=== PATIENT | female | born 1950 | race African-American/Black ===

== ENCOUNTER 2018-12-04 22:30 | Inpatient (IN) | payer BC ==
[~2018-12-04] VITALS: Ht 167.6 cm; Wt 95.5 kg
[2018-12-04] MEDS ORDERED: FUROSEMIDE40 MG ORAL (22:48)
[2018-12-04] MEDS ORDERED: SYMBICORT 16010.2 G1 IH (22:48)
[2018-12-04] MEDS ORDERED: ASPIRIN325 MG ORAL (22:48)
[2018-12-04] MEDS ORDERED: LISINOPRIL20 MG ORAL (22:48)
[2018-12-04] MEDS ORDERED: QVAR7.3 GM INH (22:48)
[2018-12-04] MEDS ORDERED: CRESTOR40 MG ORAL (22:48)
[2018-12-04] MEDS ORDERED: SPIRIVA18 MCG INH (22:48)
[2018-12-04] MEDS ORDERED: AMLODIPINE BESY10 MG ORAL (22:48)
[2018-12-04] MEDS ORDERED: TENORMIN50 MG ORAL (22:48)
[2018-12-04 23:00] VITALS: BP 127/60
--- NOTE | 2018-12-04 23:00 | NUR ---
ED Nurse Note: Patient presents to ED c/o chest tightness and shortness of breath since this AM. Patient AOx4, VSS, ambulatory with steady gait, no s/s of acute distress noted at this time. Patient has wheezing in all lobes upon auscultation. Patient reports 8/10 pain. Patient states it feels like something sitting on my chest. Patient seen by ERMD at bedside.
[2018-12-04] MEDS ORDERED: Solu-MEDROL 125mg Inj IVP ONE (23:15)
[2018-12-04] MEDS ORDERED: Albuterol ud Inhalation HHN ONE (23:15)
[2018-12-04] MEDS ORDERED: Ipratropium 0.02% Inh Soln 2.5ml UD HHN ONE (23:15)
[2018-12-04 23:32] LABS: BASOPHILS % (AUTO) 1.6 % (0.0-2.0); EOSINOPHILS % (AUTO) 2.7 % (0.0-3.0); HEMATOCRIT 38.6 % (37.0-47.0); HEMOGLOBIN 12.3 G/DL (12.0-16.0); LYMPHOCYTES % (AUTO) 18.3 % (20.0-45.0); MEAN CORPUSCULAR VOLUME 93 FL (80-99); MONOCYTES % (AUTO) 7.6 % (1.0-10.0); NEUTROPHILS % (AUTO) 69.8 % (45.0-75.0); PLATELET COUNT 335 K/UL (150-450); RED BLOOD COUNT 4.16 M/UL (4.20-5.40); RED CELL DISTRIBUTION WIDTH 12.7 % (11.6-14.8); WHITE BLOOD COUNT 9.6 K/UL (4.8-10.8)
[2018-12-04 23:53] LABS: ANION GAP 11 mmol/L (5-15); BLOOD UREA NITROGEN 23 mg/dL (7-18); CALCIUM 9.5 MG/DL (8.5-10.1); CARBON DIOXIDE 27 MMOL/L (21-32); CHLORIDE 106 MMOL/L (98-107); CREATININE 1.1 MG/DL (0.55-1.30); POTASSIUM 3.8 MMOL/L (3.5-5.1); SODIUM 144 MMOL/L (136-145)
--- NOTE | 2018-12-04 23:56 | Emergency Room Report ---
History of Present Illness General Chief Complaint: Chest Pain Source: Patient Present Illness HPI Patient presents with complaints of chest tightness also complained of shortness of breath After rapid evaluation patient had wheezing At this time reports that she also has history of COPD and is on multiple medications for that Chest tightness started this morning Ongoing throughout the day Denies any vomiting Denies any headache Pain was a tightness description Patient is also on beta jimenez for blood pressure Denies any recent travel denies any pleurisy Allergies: Coded Allergies: No Known Allergies (Verified Allergy, Mild, 12/11/07) Patient History Past Medical History: see triage record Pertinent Family History: none Last Menstrual Period: 2 decades ago Now: No : 2 Para: 2 Reviewed Nursing Documentation: PMH: Agreed; PSxH: Agreed Nursing Documentation-PMH Hx Cardiac Problems: Yes Hx Hypertension: Yes - high cholesterol Hx Cerebrovascular Accident: Yes Review of Systems All Other Systems: negative except mentioned in HPI Physical Exam Vital Signs Date Time Temp Pulse Resp B/P (MAP) Pulse Ox O2 Delivery O2 Flow Rate FiO2 12/04/18 22:43 98.4 78 21 127/60 94 Room Air 12/04/18 23:28 21 Sp02 EP Interpretation: reviewed, normal General Appearance: no apparent distress Head: normocephalic, atraumatic Eyes: bilateral eye PERRL, bilateral eye EOMI ENT: hearing grossly normal, normal pharynx, TMs + canals normal, uvula midline Neck: full range of motion, supple, no meningismus, no bony tend Respiratory: no retraction, no accessory muscle use, wheezing - Bilaterally Cardiovascular #1: normal peripheral pulses, regular rate, rhythm, no edema, no gallop, no JVD, no murmur Gastrointestinal: normal bowel sounds, non tender, soft, no mass, no organomegaly, non-distended, no guarding, no hernia, no pulsatile mass, no rebound Genitourinary: no CVA tenderness Musculoskeletal: normal inspection Neurologic: oriented x3, responsive, [employer] III-XII nml as tested, motor strength/ tone normal, sensory intact Psychiatric: mood/affect normal Skin: normal color, no rash, warm/dry, palpation normal Lymphatic: normal inspection, no adenopathy Medical Decision Making Diagnostic Impression: Primary Impression: ACS (acute coronary syndrome) Additional Impression: COPD exacerbation ER Course Patient is a fairly complex patient with multiple differential to consideration including but not limited to cardiac cardiopulmonary and vascular emergencies Patient receiving blood work here along with breathing treatments Thus far EKG does not show any acute pathology Patient feels better and is stable for further inpatient care Labs Test 12/04/18 23:15 White Blood Count 9.6 K/UL (4.8-10.8) Red Blood Count 4.16 M/UL (4.20-5.40) Hemoglobin 12.3 G/DL (12.0-16.0) Hematocrit 38.6 % (37.0-47.0) Mean Corpuscular Volume 93 FL (80-99) Mean Corpuscular Hemoglobin 29.6 PG (27.0-31.0) Mean Corpuscular Hemoglobin Concent 32.0 G/DL (32.0-36.0) Red Cell Distribution Width 12.7 % (11.6-14.8) Platelet Count 335 K/UL (150-450) Mean Platelet Volume 5.7 FL (6.5-10.1) Neutrophils (%) (Auto) 69.8 % (45.0-75.0) Lymphocytes (%) (Auto) 18.3 % (20.0-45.0) Monocytes (%) (Auto) 7.6 % (1.0-10.0) Eosinophils (%) (Auto) 2.7 % (0.0-3.0) Basophils (%) (Auto) 1.6 % (0.0-2.0) Sodium Level 144 MMOL/L (136-145) Potassium Level 3.8 MMOL/L (3.5-5.1) Chloride Level 106 MMOL/L (98-107) Carbon Dioxide Level 27 MMOL/L (21-32) Anion Gap 11 mmol/L (5-15) Blood Urea Nitrogen 23 mg/dL (7-18) Creatinine 1.1 MG/DL (0.55-1.30) Estimat Glomerular Filtration Rate > 60 mL/min (>60) Glucose Level 120 MG/DL (74-106) Calcium Level 9.5 MG/DL (8.5-10.1) Total Bilirubin 0.3 MG/DL (0.2-1.0) Aspartate Amino Transf (AST/SGOT) 19 U/L (15-37) Alanine Aminotransferase (ALT/SGPT) 28 U/L (12-78) Alkaline Phosphatase 69 U/L (46-116) Total Creatine Kinase 262 U/L (26-308) Creatine Kinase MB 1.8 NG/ML (0.0-3.6) Creatine Kinase MB Relative Index 0.6 Troponin I 0.000 ng/mL (0.000-0.056) Pro-B-Type Natriuretic Peptide 80 pg/mL (0-125) Total Protein 7.6 G/DL (6.4-8.2) Albumin 3.9 G/DL (3.4-5.0) Globulin 3.7 g/dL Albumin/Globulin Ratio 1.1 (1.0-2.7) Lipase 156 U/L (73-393) EKG Diagnostic Results Rate: normal Rhythm: NSR ST Segments: other - Nonspecific ST/T-wave changes Rhythm Strip Diag. Results EP Interpretation: yes Rate: 60 Rhythm: NSR, no PVC's, no ectopy Chest X-Ray Diagnostic Results Chest X-Ray Diagnostic Results : Chest X-Ray Ordered: Yes # of Views/Limited/Complete: 1 View Indication: Shortness of Breath EP Interpretation: Yes Interpretation: no consolidation, no effusion, no pneumothorax Impression: No acute disease - Mildly elevated left hemidiaphragm bilateral mild atelectasis Electronically Signed by: Robin Cheung DO Last Vital Signs Date Time Temp Pulse Resp B/P (MAP) Pulse Ox O2 Delivery O2 Flow Rate FiO2 12/04/18 23:39 64 16 100 Room Air 21 12/04/18 22:43 98.4 127/60 Status: improved Disposition: ADMITTED INPATIENT Condition: Serious Referrals: HOUSTON FAM M.D. (REFERMD) (PCP) Robin Cheung DO Dec 04, 2018 23:55
[2018-12-05] VITALS (7 sets, daily range): BP systolic 112–148; BP diastolic 56–78
[2018-12-05 00:08] LABS: ALANINE AMINOTRANSFERASE 28 U/L (12-78); ALBUMIN 3.9 G/DL (3.4-5.0); ALBUMIN/GLOBULIN RATIO 1.1 (1.0-2.7); ALKALINE PHOSPHATASE 69 U/L (46-116); ASPARTATE AMINO TRANSFERASE 19 U/L (15-37); BILIRUBIN,TOTAL 0.3 MG/DL (0.2-1.0); CKMB 1.8 NG/ML (0.0-3.6); CREATINE KINASE 262 U/L (26-308)
[2018-12-05] MEDS ORDERED: Aspirin Baby 81mg NG ONE (01:15)
--- NOTE | 2018-12-05 01:58 | NUR ---
ED Nurse Note: Patient transferred to telemetry unit on [facility], connected to radiation monitor, by polysomnography tech and staff development coordinator. Patient AOx4, VSS, ambulatory with steady gait, no s/s of acute distress noted at this time. Patient sent with all personal belongings. patient report given to Arpita RN at bedside. Patient tolerated transfer well. Addendum: 12/05/18 at 0215 by POLY ED Nurse Note: Patient transferred to telemetry unit on [facility], connected to radiation monitor, by polysomnography tech and staff development coordinator. Patient AOx4, VSS, ambulatory with steady gait, no s/s of acute distress noted at this time. Patient sent with all personal belongings. patient report given to Rita HERNÁNDEZ at bedside. Patient tolerated transfer well.
--- NOTE | 2018-12-05 02:10 | NUR ---
NURSE NOTES: Received report from CHRISTINE Ramirez RN. Patient was transferred to Telemetry unit from ER via [facility] without incident. No signs of acute distress noted; denies pain at this time. AOX4; able to make needs known. Ambulates independently. Checked IV site; patent and flushed. No erythema, bleeding, or infiltration noted. Patient put on Tele box; sinus rhythm on the monitor (60s). Belongings list checked with patient and transferring RN. Bed at lowest position, brakes on, siderails up x2. Call light within reach. Will continue to monitor.
[2018-12-05] MEDS ORDERED: SPIRIVA18 MCG INH (02:28)
--- NOTE | 2018-12-05 02:33 | NUR ---
NURSE NOTES: Called Dr. Vera for admission orders. Awaiting callback.
--- NOTE | 2018-12-05 03:10 | NUR ---
NURSE NOTES: Received admission orders from Dr. Vera. Noted and carried out.
[2018-12-05] MEDS ORDERED: Albuterol/Ipratropium 3ml neb HHN PRN ×2 (03:15→10:30)
[2018-12-05] MEDS ORDERED: Morphine Sulfate 2mg/ml Inj(IV/IM USE ONLY) IVP PRN (03:15)
[2018-12-05] MEDS: Solu-MEDROL 125mg Inj IVP SCH ×3 (05:08→21:23)
[2018-12-05 05:53] LABS: HEMOGLOBIN 12.6 G/DL (12.0-16.0); MEAN CORPUSCULAR VOLUME 93 FL (80-99); PLATELET COUNT 343 K/UL (150-450); WHITE BLOOD COUNT 10.6 K/UL (4.8-10.8)
[2018-12-05 06:35] LABS: ALANINE AMINOTRANSFERASE 31 U/L (12-78); ALBUMIN 3.8 G/DL (3.4-5.0); ALKALINE PHOSPHATASE 59 U/L (46-116); ANION GAP 10 mmol/L (5-15); ASPARTATE AMINO TRANSFERASE 20 U/L (15-37); BILIRUBIN,TOTAL 0.3 MG/DL (0.2-1.0); BLOOD UREA NITROGEN 22 mg/dL (7-18); CALCIUM 9.4 MG/DL (8.5-10.1); CARBON DIOXIDE 25 MMOL/L (21-32); CHLORIDE 107 MMOL/L (98-107); CHOLESTEROL 171 MG/DL (< 200); CREATININE 0.9 MG/DL (0.55-1.30); HDL CHOLESTEROL 50 MG/DL (40-60); POTASSIUM 4.3 MMOL/L (3.5-5.1); SODIUM 142 MMOL/L (136-145); TRIGLYCERIDES 71 MG/DL (30-150)
--- NOTE | 2018-12-05 06:35 | NUR ---
CASE MANAGEMENT:REVIEW 68 YR OLD FEMALE FROM HOME TO ER CC: CHEST PAIN AND SOB SI: ACS. COPD EXACERBATION 98.5 78 21 127/60 94% ON RA BUN+23 GLUCOSE+120 TROPONIN(-) IS: ASA PO DUONEB HHN IV SOLUMEDROL CXR BLOOD CX : TO TELEMETRY INTERQUAL
--- NOTE | 2018-12-05 07:00 | NUR ---
HAND-OFF: Report given to EDGAR Fuentes and EDGAR Pimentel. Patient is asleep lying semi-franco's; resting comfortably. In stable condition.
--- NOTE | 2018-12-05 07:05 | NUR ---
NURSE NOTES: received patient report from fernando persaud. patient i son bed asleep. not in acute distress. comfortable,bed i slow and locked for safety.Sr on the monitor. no arrythmias reported during the night.on RA. will continue to monitor.
[2018-12-05] MEDS: Lisinopril 20mg tab ORAL SCH (08:19)
[2018-12-05] MEDS: Aspirin Baby 81mg ORAL SCH (08:19)
[2018-12-05] MEDS: Heparin 5000 units/ml inj SUBQ SCH ×2 (08:20→21:24)
[2018-12-05] MEDS ORDERED: QVAR 80mcg Inh - 8.7gm INH SCH (10:00)
--- NOTE | 2018-12-05 10:28 | NUR ---
*-* INSURANCE *-* CLINICALS, REVIEW AND INTERQUAL HAVE BEEN FAXED TO: [facility]:BERTH[facility] P:[phone] F:[phone]
--- NOTE | 2018-12-05 10:35 | Consultation ---
Consult Note Assessment/Plan DICT # [id number] Blake Frederick MD Dec 05, 2018 10:35
--- NOTE | 2018-12-05 11:11 | History & Physical ---
History and Physical History & Physicial seen and examined. Full Dictation completed. On 11:11 Jaycee Vera MD Dec 05, 2018 11:11
--- NOTE | 2018-12-05 11:12 | General Progress Note ---
Assessment/Plan Assessment/Plan Full Dictation in progress Plan: 1- Asthma /copd exacerbation 2- Bronchitis 3- Chest pain Pulmonary and Cardiology are consulted Subjective Allergies: Coded Allergies: No Known Allergies (Verified Allergy, Mild, 12/11/07) Objective Last 24 Hour Vital Signs Date Time Temp Pulse Resp B/P (MAP) Pulse Ox O2 Delivery O2 Flow Rate FiO2 12/05/18 09:08 81 16 Room Air 21 12/05/18 09:06 89 18 98 Room Air 21 12/05/18 09:06 89 16 98 Room Air 21 12/05/18 09:00 Room Air 12/05/18 08:19 139/70 12/05/18 08:19 65 139/70 12/05/18 08:16 98.1 78 20 139/70 (93) 94 12/05/18 08:00 77 12/05/18 04:00 65 12/05/18 04:00 98.1 68 18 112/78 (89) 95 12/05/18 03:25 Room Air 12/05/18 02:20 98.0 65 18 140/72 (94) 96 12/05/18 02:14 98.4 60 13 148/56 98 Room Air 21 12/05/18 02:10 68 12/05/18 01:58 98.4 60 13 148/56 98 Room Air 12/04/18 23:39 64 16 100 Room Air 21 12/04/18 23:28 70 20 Room Air 21 12/04/18 23:28 70 20 96 Room Air 21 12/04/18 23:00 98.4 78 21 127/60 94 Room Air 12/04/18 23:00 78 21 Room Air 12/04/18 22:43 98.4 78 21 127/60 94 Room Air Intake and Output 12/04/18 12/05/18 18:59 06:59 Intake Total 0 ml Balance 0 ml Intake Oral 0 ml Laboratory Tests 12/04/18 23:15: White Blood Count 9.6, Red Blood Count 4.16L, Hemoglobin 12.3, Hematocrit 38.6, Mean Corpuscular Volume 93, Mean Corpuscular Hemoglobin 29.6, Mean Corpuscular Hemoglobin Concent 32.0, Red Cell Distribution Width 12.7, Platelet Count 335, Mean Platelet Volume 5.7L, Neutrophils (%) (Auto) 69.8, Lymphocytes (%) (Auto) 18.3L, Monocytes (%) (Auto) 7.6, Eosinophils (%) (Auto) 2.7, Basophils (%) (Auto ) 1.6, Sodium Level 144, Potassium Level 3.8, Chloride Level 106, Carbon Dioxide Level 27, Anion Gap 11, Blood Urea Nitrogen 23H, Creatinine 1.1, Estimat Glomerular Filtration Rate > 60, Glucose Level 120H, Calcium Level 9.5, Total Bilirubin 0.3, Aspartate Amino Transf (AST/SGOT) 19, Alanine Aminotransferase (ALT/SGPT) 28, Alkaline Phosphatase 69, Total Creatine Kinase 262, Creatine Kinase MB 1.8, Creatine Kinase MB Relative Index 0.6, Troponin I 0.000, Pro-B-Type Natriuretic Peptide 80, Total Protein 7.6, Albumin 3.9, Globulin 3.7, Albumin/Globulin Ratio 1.1, Lipase 156 12/05/18 05:00: White Blood Count 10.6, Red Blood Count 4.20, Hemoglobin 12.6, Hematocrit 39.0, Mean Corpuscular Volume 93, Mean Corpuscular Hemoglobin 30.0, Mean Corpuscular Hemoglobin Concent 32.3, Red Cell Distribution Width 13.0, Platelet Count 343, Mean Platelet Volume 6.5, Neutrophils (%) (Auto) , Lymphocytes (%) (Auto) , Monocytes (%) (Auto) , Eosinophils (%) (Auto) , Basophils (%) (Auto) , Sodium Level 142, Potassium Level 4.3, Chloride Level 107, Carbon Dioxide Level 25, Anion Gap 10, Blood Urea Nitrogen 22H, Creatinine 0.9, Estimat Glomerular Filtration Rate > 60, Glucose Level 128H, Calcium Level 9.4, Total Bilirubin 0.3 , Aspartate Amino Transf (AST/SGOT) 20, Alanine Aminotransferase (ALT/SGPT) 31, Alkaline Phosphatase 59, Troponin I 0.000, Pro-B-Type Natriuretic Peptide 67, Total Protein 7.6, Albumin 3.8, Globulin 3.8, Albumin/Globulin Ratio 1.0, Hemoglobin A1c 5.7, Triglycerides Level 71, Cholesterol Level 171, LDL Cholesterol 100, HDL Cholesterol 50, Cholesterol/HDL Ratio 3.4, Thyroid Stimulating Hormone (TSH) 0.406 12/05/18 10:50: D-Dimer [Pending] Height (Feet): 5 Height (Inches): 6.00 Weight (Pounds): 185 Jaycee Vera MD Dec 05, 2018 11:12
--- NOTE | 2018-12-05 12:43 | Diagnostic Imaging Report ---
Indication: Shortness of breath Technique: One view of the chest Comparison: 03/13/2008 Findings: Body habitus limits evaluation. The heart size is borderline enlarged. No definite infiltrates, effusions, or congestion.. Impression: No acute process
[2018-12-05] MEDS: Albuterol/Ipratropium 3ml neb HHN SCH ×2 (13:28→20:10)
--- NOTE | 2018-12-05 14:12 | Infectious Diseases Prog Note ---
Assessment/Plan Problems: (1) Bronchitis with chronic airway obstruction Assessment & Plan: continue doxycycline and add ceftriaxone empirically , continue inhalers and steroids (2) COPD exacerbation Assessment & Plan: due to the above, continue inhalers, taper steroids, o2 therapy as needed (3) ACS (acute coronary syndrome) Assessment & Plan: cardiac work up as per cardiology Subjective Allergies: Coded Allergies: No Known Allergies (Verified Allergy, Mild, 12/11/07) Objective Vital Signs Last 24 Hour Vital Signs Date Time Temp Pulse Resp B/P (MAP) Pulse Ox O2 Delivery O2 Flow Rate FiO2 12/05/18 13:34 78 16 100 Room Air 21 12/05/18 13:24 36 12/05/18 13:24 85 20 97 Room Air 21 12/05/18 12:00 98.1 82 20 129/69 (89) 94 12/05/18 09:08 81 16 Room Air 21 12/05/18 09:06 89 18 98 Room Air 21 12/05/18 09:06 89 16 98 Room Air 21 12/05/18 09:00 Room Air 12/05/18 08:19 139/70 12/05/18 08:19 65 139/70 12/05/18 08:16 98.1 78 20 139/70 (93) 94 12/05/18 08:00 77 12/05/18 04:00 65 12/05/18 04:00 98.1 68 18 112/78 (89) 95 12/05/18 03:25 Room Air 12/05/18 02:20 98.0 65 18 140/72 (94) 96 12/05/18 02:14 98.4 60 13 148/56 98 Room Air 21 12/05/18 02:10 68 12/05/18 01:58 98.4 60 13 148/56 98 Room Air 12/04/18 23:39 64 16 100 Room Air 21 12/04/18 23:28 70 20 Room Air 21 12/04/18 23:28 70 20 96 Room Air 21 12/04/18 23:00 98.4 78 21 127/60 94 Room Air 12/04/18 23:00 78 21 Room Air 12/04/18 22:43 98.4 78 21 127/60 94 Room Air Height (Feet): 5 Height (Inches): 6.00 Weight (Pounds): 185 Laboratory Tests Test 12/04/18 23:15 12/05/18 05:00 12/05/18 10:50 12/05/18 12:45 White Blood Count 9.6 K/UL (4.8-10.8) 10.6 K/UL (4.8-10.8) Red Blood Count 4.16 M/UL (4.20-5.40) L 4.20 M/UL (4.20-5.40) Hemoglobin 12.3 G/DL (12.0-16.0) 12.6 G/DL (12.0-16.0) Hematocrit 38.6 % (37.0-47.0) 39.0 % (37.0-47.0) Mean Corpuscular Volume 93 FL (80-99) 93 FL (80-99) Mean Corpuscular Hemoglobin 29.6 PG (27.0-31.0) 30.0 PG (27.0-31.0) Mean Corpuscular Hemoglobin Concent 32.0 G/DL (32.0-36.0) 32.3 G/DL (32.0-36.0) Red Cell Distribution Width 12.7 % (11.6-14.8) 13.0 % (11.6-14.8) Platelet Count 335 K/UL (150-450) 343 K/UL (150-450) Mean Platelet Volume 5.7 FL (6.5-10.1) L 6.5 FL (6.5-10.1) Neutrophils (%) (Auto) 69.8 % (45.0-75.0) % (45.0-75.0) Lymphocytes (%) (Auto) 18.3 % (20.0-45.0) L % (20.0-45.0) Monocytes (%) (Auto) 7.6 % (1.0-10.0) % (1.0-10.0) Eosinophils (%) (Auto) 2.7 % (0.0-3.0) % (0.0-3.0) Basophils (%) (Auto) 1.6 % (0.0-2.0) % (0.0-2.0) Sodium Level 144 MMOL/L (136-145) 142 MMOL/L (136-145) Potassium Level 3.8 MMOL/L (3.5-5.1) 4.3 MMOL/L (3.5-5.1) Chloride Level 106 MMOL/L (98-107) 107 MMOL/L (98-107) Carbon Dioxide Level 27 MMOL/L (21-32) 25 MMOL/L (21-32) Anion Gap 11 mmol/L (5-15) 10 mmol/L (5-15) Blood Urea Nitrogen 23 mg/dL (7-18) H 22 mg/dL (7-18) H Creatinine 1.1 MG/DL (0.55-1.30) 0.9 MG/DL (0.55-1.30) Estimat Glomerular Filtration Rate > 60 mL/min (>60) > 60 mL/min (>60) Glucose Level 120 MG/DL (74-106) H 128 MG/DL (74-106) H Calcium Level 9.5 MG/DL (8.5-10.1) 9.4 MG/DL (8.5-10.1) Total Bilirubin 0.3 MG/DL (0.2-1.0) 0.3 MG/DL (0.2-1.0) Aspartate Amino Transf (AST/SGOT) 19 U/L (15-37) 20 U/L (15-37) Alanine Aminotransferase (ALT/SGPT) 28 U/L (12-78) 31 U/L (12-78) Alkaline Phosphatase 69 U/L (46-116) 59 U/L (46-116) Total Creatine Kinase 262 U/L (26-308) Creatine Kinase MB 1.8 NG/ML (0.0-3.6) Creatine Kinase MB Relative Index 0.6 Troponin I 0.000 ng/mL (0.000-0.056) 0.000 ng/mL (0.000-0.056) 0.017 ng/mL (0.000-0.056) Pro-B-Type Natriuretic Peptide 80 pg/mL (0-125) 67 pg/mL (0-125) Total Protein 7.6 G/DL (6.4-8.2) 7.6 G/DL (6.4-8.2) Albumin 3.9 G/DL (3.4-5.0) 3.8 G/DL (3.4-5.0) Globulin 3.7 g/dL 3.8 g/dL Albumin/Globulin Ratio 1.1 (1.0-2.7) 1.0 (1.0-2.7) Lipase 156 U/L (73-393) Hemoglobin A1c 5.7 % (4.3-6.0) Triglycerides Level 71 MG/DL (30-150) Cholesterol Level 171 MG/DL (< 200) LDL Cholesterol 100 mg/dL (<100) HDL Cholesterol 50 MG/DL (40-60) Cholesterol/HDL Ratio 3.4 (3.3-4.4) Thyroid Stimulating Hormone (TSH) 0.406 uiU/mL (0.358-3.740) D-Dimer 0.54 mg/L FEU (0.00-0.49) H Current Medications Medications (Trade) Dose Ordered Sig/Alysa Route PRN Reason Start Time Stop Time Status Last Admin Dose Admin Acetaminophen (Tylenol) 650 mg Q4H PRN ORAL Mild Pain/Temp > 100.5 12/05/18 03:15 01/04/19 03:14 Albuterol/ Ipratropium (Albuterol/ Ipratropium) 3 ml Q4H PRN HHN Shortness of Breath 12/05/18 03:15 12/10/18 03:14 Albuterol/ Ipratropium (Albuterol/ Ipratropium) 3 ml Q4H PRN HHN Shortness of Breath 12/05/18 10:30 12/10/18 10:29 Albuterol/ Ipratropium (Albuterol/ Ipratropium) 3 ml Q6HRT HHN 12/05/18 13:00 12/10/18 12:59 12/05/18 13:28 Amlodipine Besylate (Norvasc) 10 mg DAILY ORAL 12/05/18 09:00 01/04/19 08:59 12/05/18 08:19 Aspirin (ASA) 81 mg DAILY ORAL 12/05/18 09:00 01/04/19 08:59 12/05/18 08:19 Atorvastatin Calcium (Lipitor) 80 mg BEDTIME ORAL 12/05/18 21:00 01/04/19 20:59 Azithromycin (Zithromax) 500 mg DAILY ORAL 12/06/18 09:00 12/13/18 08:59 Doxycycline Monohydrate (Vibramycin) 100 mg EVERY 12 HOURS ORAL 12/05/18 21:00 12/12/18 20:59 Furosemide (Lasix) 40 mg DAILY ORAL 12/05/18 09:00 01/04/19 08:59 12/05/18 08:18 Heparin Sodium (Porcine) (Heparin 5000 units/ml) 5,000 units EVERY 12 HOURS SUBQ 12/05/18 09:00 01/04/19 08:59 12/05/18 08:20 Lisinopril (Prinivil) 40 mg DAILY ORAL 12/05/18 09:00 01/04/19 08:59 12/05/18 08:19 Methylprednisolone Sodium Succinate (Solu-MEDROL) 60 mg EVERY 8 HOURS IVP 12/05/18 06:00 01/04/19 05:59 12/05/18 13:17 Morphine Sulfate (Morphine Sulfate) 2 mg Q8HR PRN IVP Severe Pain (Pain Scale 7-10) 12/05/18 03:15 12/12/18 03:14 Pantoprazole (Protonix) 40 mg DAILY ORAL 12/05/18 09:00 01/04/19 08:59 12/05/18 08:19 Salmeterol Xinafoate/ Fluticasone (Advair 250/50 Diskus) 1 puffs BID INH 12/05/18 18:00 01/04/19 17:59 Tiotropium Lookout (Spiriva Inhaler) 1 puff DAILY INH 12/06/18 09:00 01/05/19 08:59 Kathleen Hayes M.D. Dec 05, 2018 14:12
--- NOTE | 2018-12-05 16:54 | Cardiology Report ---
APPROVED REPORT EXAM: Two-dimensional and M-mode echocardiogram with Doppler and color Doppler. INDICATION Chest Pain M-Mode DIMENSIONS IVSd1.4 (0.7-1.1cm)Left Atrium (MM)3.6 (1.6-4.0cm) LVDd1.5 (3.5-5.6cm)Aortic Root3.0 (2.0-3.7cm) PWd4.5 (0.7-1.1cm)Aortic Cusp Exc.2.0 (1.5-2.0cm) IVSs2.8 cm LVDs1.6 (2.5-4.0cm) PWs1.8 cm Normal left ventricular chamber size, systolic function and wall motion. Left ventricular ejection fraction estimated to be 55-60 %. No evidence of left ventricular hypertrophy . Anterior Echo-free space, may be due to pericardial fat or effusion. Mild left atrial enlargement. Right cardiac chamber size are within normal limits . Thickened mitral valve leaflets with normal excursion. Focal aortic valve sclerosis with adequate cusp excursion. Moderately mitral annulus and aortic root calcification. Pulmonic valve not well visualized. Normal tricuspid valve structure. IVC at size 2.1cm without physiologic collapse suggestive of increased RA pressure. A color flow and spectral Doppler study was performed and revealed: No aortic insufficiency .Peak aortic vavel gradient 17 mmhg and mean gradient of 6 mmhg Trace mitral regurgitation. Mitral diastolic velocities suggest reduced left ventricular relaxation c/w mild LV diastolic dysfunction (Grade I ). Mild tricuspid regurgitation. Tricuspid systolic velocities suggests peak right ventricular systolic pressure of 35 mmHg.
--- NOTE | 2018-12-05 17:00 | Cardiology Report ---
APPROVED REPORT EKG Measurement Heart [id number] ID [id number] Normal sinus rhythm Normal ECG
--- NOTE | 2018-12-05 17:21 | Consultation ---
History of Present Illness General Date patient seen: Dec 05, 2018 Time patient seen: 14:00 Chief Complaint: COPD EXACERBATION AND Chest Pain Referring physician: Sunshine Garza Reason for Consultation: bronchitis with COPD exacerbation Present Illness HPI This is a 68-year-old -[place] female with past medical history of COPD and asthma coronary artery disease hyperlipidemia and CVA presented to [facility] emergency room with chest tightness shortness of breath and wheezing started yesterday patient woke up with chest tightness seems like elephant sitting on her chest it was 10 out of 10 in intensity not associated with any dizziness sweats nausea or vomiting but she developed shortness of breath and wheezing after she had her chest pain so she was brought into the emergency room at [facility] for further evaluation and management. In the emergency room she had a chest x-ray which did not show any acute infiltration, her vital signs show temperature of 98.4 with a pulse of 78 and satting 94% on room air patient was admitted to the hospital to rule out acute coronary syndrome and for COPD exacerbation and infectious disease consultation was requested for antibiotics treatment and further management Allergies: Coded Allergies: No Known Allergies (Verified Allergy, Mild, 12/11/07) Medication History Scheduled Amlodipine Besylate* (Amlodipine Besylate*), 10 MG ORAL DAILY, (Reported) Aspirin* (Aspirin*), 325 MG ORAL DAILY, (Reported) Atenolol* (Tenormin*), 50 MG ORAL DAILY, (Reported) Beclomethasone Dipropionate 40MCG Oral Inh (Qvar 40*), 2 PUFFS INH TWICE A DAY, (Reported) Budesonide/Formoterol Fumarate (Symbicort 160-4.5 Mcg Inhaler), 1 PUFF IH BID, ( Reported) Furosemide* (Lasix*), 40 MG ORAL DAILY, (Reported) Lisinopril (Lisinopril*), 40 MG ORAL DAILY, (Reported) Rosuvastatin Calcium* (Crestor*), 40 MG ORAL DAILY, (Reported) Tiotropium [place]* (Spiriva*), 1 PUFF INH DAILY, (Reported) Tiotropium [place]* (Spiriva*), 1 PUFF INH DAILY, (Reported) Patient History History Provided By: Patient Healthcare decision maker Resuscitation status Full Code Advanced Directive on File Past Medical/Surgical History Past Medical/Surgical History: (1) CAD (coronary artery disease) (2) COPD (chronic obstructive pulmonary disease) (3) HTN (hypertension) Review of Systems Constitutional: Reports: weakness Eye: Reports: no symptoms ENT: Reports: no symptoms Respiratory: Reports: cough, shortness of breath, wheezing Cardiovascular: Reports: chest pain, palpitations Gastrointestinal: Reports: no symptoms Genitourinary: Reports: no symptoms Musculoskeletal: Reports: no symptoms Skin: Reports: no symptoms Psychiatric: Reports: no symptoms Neurological: Reports: no symptoms Endocrine: Reports: no symptoms Hematologic/Lymphatic: Reports: no symptoms Physical Exam General Appearance: WD/WN, no apparent distress, alert Lines, tubes and drains: peripheral HEENT: normocephalic, atraumatic, anicteric, mucous membranes moist, PERRL, pharynx normal, supple, no JVD Neck: non-tender, normal alignment, supple, normal inspection Respiratory/Chest: chest wall non-tender, no respiratory distress, no accessory muscle use, expiratory wheezing, inspiratory wheezing Cardiovascular/Chest: normal peripheral pulses, normal rate, regular rhythm, no gallop/murmur, no JVD Abdomen: normal bowel sounds, non tender, soft, no organomegaly, no mass Genitourinary/Rectal: normal genital exam Extremities: normal range of motion, non-tender, normal inspection, no calf tenderness, normal capillary refill Skin Exam: normal pigmentation, warm/dry 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, no motor/sensory deficits, alert, oriented x 3, responsive Musculoskeletal: normal muscle bulk, no effusion Last 24 Hour Vital Signs Date Time Temp Pulse Resp B/P (MAP) Pulse Ox O2 Delivery O2 Flow Rate FiO2 12/05/18 16:00 98.0 87 20 135/73 (93) 94 12/05/18 13:34 78 16 100 Room Air 21 12/05/18 13:24 36 12/05/18 13:24 85 20 97 Room Air 21 12/05/18 12:00 98.1 82 20 129/69 (89) 94 12/05/18 11:38 81 12/05/18 09:08 81 16 Room Air 21 12/05/18 09:06 89 18 98 Room Air 21 12/05/18 09:06 89 16 98 Room Air 21 12/05/18 09:00 Room Air 12/05/18 08:19 139/70 12/05/18 08:19 65 139/70 12/05/18 08:16 98.1 78 20 139/70 (93) 94 12/05/18 08:00 77 12/05/18 04:00 65 12/05/18 04:00 98.1 68 18 112/78 (89) 95 12/05/18 03:25 Room Air 12/05/18 02:20 98.0 65 18 140/72 (94) 96 12/05/18 02:14 98.4 60 13 148/56 98 Room Air 21 12/05/18 02:10 68 12/05/18 01:58 98.4 60 13 148/56 98 Room Air 12/04/18 23:39 64 16 100 Room Air 21 12/04/18 23:28 70 20 Room Air 21 12/04/18 23:28 70 20 96 Room Air 21 12/04/18 23:00 98.4 78 21 127/60 94 Room Air 12/04/18 23:00 78 21 Room Air 12/04/18 22:43 98.4 78 21 127/60 94 Room Air Intake and Output 12/04/18 12/05/18 19:00 07:00 Intake Total 0 ml Balance 0 ml Intake Oral 0 ml Laboratory Tests Test 12/04/18 23:15 12/05/18 05:00 12/05/18 10:50 12/05/18 12:45 White Blood Count 9.6 K/UL (4.8-10.8) 10.6 K/UL (4.8-10.8) Red Blood Count 4.16 M/UL (4.20-5.40) L 4.20 M/UL (4.20-5.40) Hemoglobin 12.3 G/DL (12.0-16.0) 12.6 G/DL (12.0-16.0) Hematocrit 38.6 % (37.0-47.0) 39.0 % (37.0-47.0) Mean Corpuscular Volume 93 FL (80-99) 93 FL (80-99) Mean Corpuscular Hemoglobin 29.6 PG (27.0-31.0) 30.0 PG (27.0-31.0) Mean Corpuscular Hemoglobin Concent 32.0 G/DL (32.0-36.0) 32.3 G/DL (32.0-36.0) Red Cell Distribution Width 12.7 % (11.6-14.8) 13.0 % (11.6-14.8) Platelet Count 335 K/UL (150-450) 343 K/UL (150-450) Mean Platelet Volume 5.7 FL (6.5-10.1) L 6.5 FL (6.5-10.1) Neutrophils (%) (Auto) 69.8 % (45.0-75.0) % (45.0-75.0) Lymphocytes (%) (Auto) 18.3 % (20.0-45.0) L % (20.0-45.0) Monocytes (%) (Auto) 7.6 % (1.0-10.0) % (1.0-10.0) Eosinophils (%) (Auto) 2.7 % (0.0-3.0) % (0.0-3.0) Basophils (%) (Auto) 1.6 % (0.0-2.0) % (0.0-2.0) Sodium Level 144 MMOL/L (136-145) 142 MMOL/L (136-145) Potassium Level 3.8 MMOL/L (3.5-5.1) 4.3 MMOL/L (3.5-5.1) Chloride Level 106 MMOL/L (98-107) 107 MMOL/L (98-107) Carbon Dioxide Level 27 MMOL/L (21-32) 25 MMOL/L (21-32) Anion Gap 11 mmol/L (5-15) 10 mmol/L (5-15) Blood Urea Nitrogen 23 mg/dL (7-18) H 22 mg/dL (7-18) H Creatinine 1.1 MG/DL (0.55-1.30) 0.9 MG/DL (0.55-1.30) Estimat Glomerular Filtration Rate > 60 mL/min (>60) > 60 mL/min (>60) Glucose Level 120 MG/DL (74-106) H 128 MG/DL (74-106) H Calcium Level 9.5 MG/DL (8.5-10.1) 9.4 MG/DL (8.5-10.1) Total Bilirubin 0.3 MG/DL (0.2-1.0) 0.3 MG/DL (0.2-1.0) Aspartate Amino Transf (AST/SGOT) 19 U/L (15-37) 20 U/L (15-37) Alanine Aminotransferase (ALT/SGPT) 28 U/L (12-78) 31 U/L (12-78) Alkaline Phosphatase 69 U/L (46-116) 59 U/L (46-116) Total Creatine Kinase 262 U/L (26-308) Creatine Kinase MB 1.8 NG/ML (0.0-3.6) Creatine Kinase MB Relative Index 0.6 Troponin I 0.000 ng/mL (0.000-0.056) 0.000 ng/mL (0.000-0.056) 0.017 ng/mL (0.000-0.056) Pro-B-Type Natriuretic Peptide 80 pg/mL (0-125) 67 pg/mL (0-125) Total Protein 7.6 G/DL (6.4-8.2) 7.6 G/DL (6.4-8.2) Albumin 3.9 G/DL (3.4-5.0) 3.8 G/DL (3.4-5.0) Globulin 3.7 g/dL 3.8 g/dL Albumin/Globulin Ratio 1.1 (1.0-2.7) 1.0 (1.0-2.7) Lipase 156 U/L (73-393) Hemoglobin A1c 5.7 % (4.3-6.0) Triglycerides Level 71 MG/DL (30-150) Cholesterol Level 171 MG/DL (< 200) LDL Cholesterol 100 mg/dL (<100) HDL Cholesterol 50 MG/DL (40-60) Cholesterol/HDL Ratio 3.4 (3.3-4.4) Thyroid Stimulating Hormone (TSH) 0.406 uiU/mL (0.358-3.740) D-Dimer 0.54 mg/L FEU (0.00-0.49) H Height (Feet): 5 Height (Inches): 6.00 Weight (Pounds): 185 Medications Current Medications Medications (Trade) Dose Ordered Sig/Alysa Route PRN Reason Start Time Stop Time Status Last Admin Dose Admin Acetaminophen (Tylenol) 650 mg Q4H PRN ORAL Mild Pain/Temp > 100.5 12/05/18 03:15 01/04/19 03:14 Albuterol/ Ipratropium (Albuterol/ Ipratropium) 3 ml Q4H PRN HHN Shortness of Breath 12/05/18 03:15 12/10/18 03:14 Albuterol/ Ipratropium (Albuterol/ Ipratropium) 3 ml Q4H PRN HHN Shortness of Breath 12/05/18 10:30 12/10/18 10:29 Albuterol/ Ipratropium (Albuterol/ Ipratropium) 3 ml Q6HRT HHN 12/05/18 13:00 12/10/18 12:59 12/05/18 13:28 Amlodipine Besylate (Norvasc) 10 mg DAILY ORAL 12/05/18 09:00 01/04/19 08:59 12/05/18 08:19 Aspirin (ASA) 81 mg DAILY ORAL 12/05/18 09:00 01/04/19 08:59 12/05/18 08:19 Atorvastatin Calcium (Lipitor) 80 mg BEDTIME ORAL 12/05/18 21:00 01/04/19 20:59 Azithromycin (Zithromax) 500 mg DAILY ORAL 12/06/18 09:00 12/13/18 08:59 Doxycycline Monohydrate (Vibramycin) 100 mg EVERY 12 HOURS ORAL 12/05/18 21:00 12/12/18 20:59 Furosemide (Lasix) 40 mg DAILY ORAL 12/05/18 09:00 01/04/19 08:59 12/05/18 08:18 Heparin Sodium (Porcine) (Heparin 5000 units/ml) 5,000 units EVERY 12 HOURS SUBQ 12/05/18 09:00 01/04/19 08:59 12/05/18 08:20 Lisinopril (Prinivil) 40 mg DAILY ORAL 12/05/18 09:00 01/04/19 08:59 12/05/18 08:19 Methylprednisolone Sodium Succinate (Solu-MEDROL) 60 mg EVERY 8 HOURS IVP 12/05/18 06:00 01/04/19 05:59 12/05/18 13:17 Morphine Sulfate (Morphine Sulfate) 2 mg Q8HR PRN IVP Severe Pain (Pain Scale 7-10) 12/05/18 03:15 12/12/18 03:14 Pantoprazole (Protonix) 40 mg DAILY ORAL 12/05/18 09:00 01/04/19 08:59 12/05/18 08:19 Salmeterol Xinafoate/ Fluticasone (Advair 250/50 Diskus) 1 puffs BID INH 12/05/18 18:00 01/04/19 17:59 Tiotropium [place] (Spiriva Inhaler) 1 puff DAILY INH 12/06/18 09:00 01/05/19 08:59 Assessment/Plan Problem List: (1) Bronchitis with chronic airway obstruction Assessment & Plan: continue doxycycline empirically , stop zithromax . continue inhalers and steroids ICD Codes: J44.9 - Chronic obstructive pulmonary disease, unspecified SNOMED: 65379757, 761935282 (2) COPD exacerbation Assessment & Plan: due to the above, continue inhalers, taper steroids, o2 therapy as needed ICD Codes: J44.1 - Chronic obstructive pulmonary disease with (acute) exacerbation SNOMED: 709196246 (3) ACS (acute coronary syndrome) Assessment & Plan: cardiac work up as per cardiology ICD Codes: I24.9 - Acute ischemic heart disease, unspecified SNOMED: 876529342 Status: Kathleen Brenner M.D. Dec 05, 2018 17:21
[2018-12-05] MEDS: Wixela 250/50 Inhaler - 60 dose INH SCH ×2 (18:00→20:03)
--- NOTE | 2018-12-05 18:00 | Consultation ---
DATE OF CONSULTATION: 12/05/2018 PULMONARY CONSULTATION CONSULTING PHYSICIAN: Blake Frederick M.D. REFERRING PHYSICIAN: . REASON FOR CONSULTATION: COPD exacerbation. HISTORY OF PRESENT ILLNESS: The patient is a 68-year-old female with a history of chronic obstructive pulmonary disease/asthma, hypertension, congestive heart failure, hyperlipidemia, former smoker, presenting with several days of cough, congestion, shortness of breath, and wheezing. She states that she follows up with a color blender and per color blender recommendations is on Symbicort, QVAR, and Spiriva. She does not have a nebulizer, but uses p.r.n. Ventolin. She had no relief, so came into the emergency department for evaluation. She had a vague complaint of chest tightness, but no chest pain per se. She has been afebrile, vital signs have been stable, and she has been saturating well on room air. Her troponins were negative, although not available for my review. Per the ER physician's report, chest x-ray was unremarkable except for some mild atelectasis. PAST MEDICAL HISTORY: 1. Hypertension. 2. Hyperlipidemia. 3. CAD. 4. COPD/asthma. 5. CHF. PAST SURGICAL HISTORY: . ALLERGIES: No known drug allergies. MEDICATIONS: Prior to admission medications, reviewed. Current medications, reviewed. SOCIAL HISTORY: She is a former smoker, none current. No drug or alcohol use. FAMILY HISTORY: Noncontributory. REVIEW OF SYSTEMS: Negative other than the history of present illness. PHYSICAL EXAMINATION: VITAL SIGNS: Temperature is 98.1, pulse 78, blood pressure 139/70, and respiratory rate 20. Saturating 94% on room air. GENERAL: She is a well-developed and well-nourished female, obese, in no acute distress. Awake, alert, and oriented x3. HEENT: Normocephalic and atraumatic. Oropharynx is clear. Moist mucous membranes. NECK: Supple without lymphadenopathy or JVD. CHEST: Clear to auscultation bilateral. HEART: Regular rate and rhythm. ABDOMEN: Soft, nontender, and nondistended. EXTREMITIES: No cyanosis, clubbing, or edema. ANCILLARY DATA: Chest x-ray, per report, normal. Labs reviewed, troponin negative x2. ASSESSMENT: The patient is a 68-year-old female, former smoker, presenting with shortness of breath and atypical chest pain. She has had two negative troponins and does not have chest pain per se. Her shortness of breath is likely secondary to an exacerbation of her chronic obstructive pulmonary disease. We will check a D-dimer to rule out venous thromboembolism as well. PROBLEM LIST: 1. COPD/asthma with acute exacerbation. 2. Atypical chest pain, status post rule out ACS. 3. Former smoker. 4. Hypertension, hyperlipidemia, CAD, CHF. TREATMENT PLAN: 1. Optimize pulmonary hygiene/mobilize as tolerated. 2. P.r.n. O2 to keep saturations greater than 90%. 3. Vpaku-[id number]-huier and p.r.n. bronchodilators. 4. Discontinue QVAR. 5. Continue Spiriva. 6. Symbicort, not on formulary, we will replace with Advair. 7. Continue steroids, we will taper as able. 8. Discontinue Levaquin, start doxycycline for atypical coverage. 9. Check a D-dimer. 10. Monitor for signs of respiratory infection. 11. Follow up echocardiogram. 12. The patient should have optimization of her inhaler regimen as an outpatient. 13. Follow up final chest x-ray. 14. The patient should have screening CT of the chest at some point. 15. DVT prophylaxis, heparin subcutaneous. 16. Continue to abstain from smoking. Dr. Vera, thank you for allowing me to assist in the care of your patient. If I may be of any assistance in the future, please do not hesitate to ask. Blake Frederick M.D. DR: VÍCTOR JOB#: [id number] CC:
--- NOTE | 2018-12-05 19:19 | NUR ---
HAND-OFF: Report given to christa persaud.
--- NOTE | 2018-12-05 19:20 | NUR ---
NURSE NOTES: Received patient report from Gina HERNÁNDEZ. patient is resting in bed with no acute distress noted at this time. Bed is low and locked for safety.Patient has no complaints or questions at this moment. Will continue to monitor and follow plan of care.
--- NOTE | 2018-12-05 20:00 | History and Physical Report ---
DATE OF ADMISSION: 12/04/2018 SOURCE OF INFORMATION: Patient and EMR. HISTORY OF PRESENT ILLNESS: The patient is a pleasant -[place] female with history of asthma who presented with worsening of shortness of breath. The patient is complaining of feeling heaviness all over the chest, lasting at least a couple of hours prior to the hospital admission. Initial evaluation shows the vital signs that are stable. The patient denies any loss of consciousness or dizziness. Denies any nausea or vomitus. Denies any diarrhea or constipation. REVIEW OF SYSTEMS: All 12 elements of review of systems reviewed. Pertinent positive and negative as above. ALLERGIES: NKDA. FAMILY HISTORY: Reviewed and noncontributory. SOCIAL HISTORY: The patient denies history of illicit drug abuse, smoking, or alcohol abuse. The patient is living by herself. She has children. MEDICATIONS: Current hospital medications including acetaminophen, amlodipine, aspirin, atorvastatin, breathing treatments, Lasix, and methylprednisolone 60 mg q.8 h. PHYSICAL EXAMINATION: VITAL SIGNS: Blood pressure 120/80, temperature 98.2, pulse oximetry 100% on room air. HEAD AND NECK: Atraumatic and normocephalic. CHEST: Clear to auscultation. HEART: S1, S2. CHEST: Diffuse bronchial breathing sounds with scattered wheezing. ABDOMEN: Obese and soft. No organomegaly. MUSCULOSKELETAL: No gross lateralized motor deficit. NEUROLOGY: The patient is awake, alert, and oriented x3. LABORATORY AND DIAGNOSTIC DATA: Labs dated 12/04/2018 shows WBC 9.6, hemoglobin 12.3, and platelets 335,000. Sodium 144, potassium 3.8, BUN 23, and creatinine 1.1. TSH 0.4. Troponin x1 negative. D-dimer is pending. ASSESSMENT AND PLAN: 1. Asthma/COPD exacerbation. 2. Chest pain, possibility of atypical versus acute coronary syndrome. 3. GI and DVT prophylaxis. PLAN OF CARE: Given the patient's current morbidities including obesity and abnormal blood sugar. We will proceed with telemetry. Cardiology notified. Proceed with the echo. Pulmonary notified. We will continue with the empiric antibiotic treatment and breathing treatments. Pulmonary consulted. Jaycee Vera M.D. DR: JORGE JOB#: [id number] CC:
--- NOTE | 2018-12-05 20:48 | Cardiology Progress Note ---
Assessment/Plan Assessment/Plan The patient is seen and examined, full consult note is dictated. Objective Last 24 Hour Vital Signs Date Time Temp Pulse Resp B/P (MAP) Pulse Ox O2 Delivery O2 Flow Rate FiO2 12/05/18 20:17 79 18 97 Room Air 21 12/05/18 20:17 32 12/05/18 20:14 75 18 Room Air 21 12/05/18 20:10 78 18 94 Room Air 21 12/05/18 20:06 Room Air 12/05/18 20:06 Room Air 12/05/18 16:00 98.0 87 20 135/73 (93) 94 12/05/18 16:00 88 12/05/18 13:34 78 16 100 Room Air 21 12/05/18 13:24 36 12/05/18 13:24 85 20 97 Room Air 21 12/05/18 12:00 98.1 82 20 129/69 (89) 94 12/05/18 11:38 81 12/05/18 09:08 81 16 Room Air 21 12/05/18 09:06 89 18 98 Room Air 21 12/05/18 09:06 89 16 98 Room Air 21 12/05/18 09:00 Room Air 12/05/18 08:19 139/70 12/05/18 08:19 65 139/70 12/05/18 08:16 98.1 78 20 139/70 (93) 94 12/05/18 08:00 77 12/05/18 04:00 65 12/05/18 04:00 98.1 68 18 112/78 (89) 95 12/05/18 03:25 Room Air 12/05/18 02:20 98.0 65 18 140/72 (94) 96 12/05/18 02:14 98.4 60 13 148/56 98 Room Air 12/05/18 02:10 68 12/05/18 01:58 98.4 60 13 148/56 98 Room Air 12/04/18 23:39 64 16 100 Room Air 21 12/04/18 23:28 70 20 Room Air 21 12/04/18 23:28 70 20 96 Room Air 21 12/04/18 23:00 98.4 78 21 127/60 94 Room Air 12/04/18 23:00 78 21 Room Air 12/04/18 22:43 98.4 78 21 127/60 94 Room Air Intake and Output 12/04/18 12/05/18 19:00 07:00 Intake Total 0 ml Balance 0 ml Intake Oral 0 ml Laboratory Tests Test 12/04/18 23:15 12/05/18 05:00 12/05/18 10:50 12/05/18 12:45 White Blood Count 9.6 K/UL (4.8-10.8) 10.6 K/UL (4.8-10.8) Red Blood Count 4.16 M/UL (4.20-5.40) L 4.20 M/UL (4.20-5.40) Hemoglobin 12.3 G/DL (12.0-16.0) 12.6 G/DL (12.0-16.0) Hematocrit 38.6 % (37.0-47.0) 39.0 % (37.0-47.0) Mean Corpuscular Volume 93 FL (80-99) 93 FL (80-99) Mean Corpuscular Hemoglobin 29.6 PG (27.0-31.0) 30.0 PG (27.0-31.0) Mean Corpuscular Hemoglobin Concent 32.0 G/DL (32.0-36.0) 32.3 G/DL (32.0-36.0) Red Cell Distribution Width 12.7 % (11.6-14.8) 13.0 % (11.6-14.8) Platelet Count 335 K/UL (150-450) 343 K/UL (150-450) Mean Platelet Volume 5.7 FL (6.5-10.1) L 6.5 FL (6.5-10.1) Neutrophils (%) (Auto) 69.8 % (45.0-75.0) % (45.0-75.0) Lymphocytes (%) (Auto) 18.3 % (20.0-45.0) L % (20.0-45.0) Monocytes (%) (Auto) 7.6 % (1.0-10.0) % (1.0-10.0) Eosinophils (%) (Auto) 2.7 % (0.0-3.0) % (0.0-3.0) Basophils (%) (Auto) 1.6 % (0.0-2.0) % (0.0-2.0) Sodium Level 144 MMOL/L (136-145) 142 MMOL/L (136-145) Potassium Level 3.8 MMOL/L (3.5-5.1) 4.3 MMOL/L (3.5-5.1) Chloride Level 106 MMOL/L (98-107) 107 MMOL/L (98-107) Carbon Dioxide Level 27 MMOL/L (21-32) 25 MMOL/L (21-32) Anion Gap 11 mmol/L (5-15) 10 mmol/L (5-15) Blood Urea Nitrogen 23 mg/dL (7-18) H 22 mg/dL (7-18) H Creatinine 1.1 MG/DL (0.55-1.30) 0.9 MG/DL (0.55-1.30) Estimat Glomerular Filtration Rate > 60 mL/min (>60) > 60 mL/min (>60) Glucose Level 120 MG/DL (74-106) H 128 MG/DL (74-106) H Calcium Level 9.5 MG/DL (8.5-10.1) 9.4 MG/DL (8.5-10.1) Total Bilirubin 0.3 MG/DL (0.2-1.0) 0.3 MG/DL (0.2-1.0) Aspartate Amino Transf (AST/SGOT) 19 U/L (15-37) 20 U/L (15-37) Alanine Aminotransferase (ALT/SGPT) 28 U/L (12-78) 31 U/L (12-78) Alkaline Phosphatase 69 U/L (46-116) 59 U/L (46-116) Total Creatine Kinase 262 U/L (26-308) Creatine Kinase MB 1.8 NG/ML (0.0-3.6) Creatine Kinase MB Relative Index 0.6 Troponin I 0.000 ng/mL (0.000-0.056) 0.000 ng/mL (0.000-0.056) 0.017 ng/mL (0.000-0.056) Pro-B-Type Natriuretic Peptide 80 pg/mL (0-125) 67 pg/mL (0-125) Total Protein 7.6 G/DL (6.4-8.2) 7.6 G/DL (6.4-8.2) Albumin 3.9 G/DL (3.4-5.0) 3.8 G/DL (3.4-5.0) Globulin 3.7 g/dL 3.8 g/dL Albumin/Globulin Ratio 1.1 (1.0-2.7) 1.0 (1.0-2.7) Lipase 156 U/L (73-393) Hemoglobin A1c 5.7 % (4.3-6.0) Triglycerides Level 71 MG/DL (30-150) Cholesterol Level 171 MG/DL (< 200) LDL Cholesterol 100 mg/dL (<100) HDL Cholesterol 50 MG/DL (40-60) Cholesterol/HDL Ratio 3.4 (3.3-4.4) Thyroid Stimulating Hormone (TSH) 0.406 uiU/mL (0.358-3.740) D-Dimer 0.54 mg/L FEU (0.00-0.49) H Test 12/05/18 19:55 Troponin I 0.000 ng/mL (0.000-0.056) Everton Michaels MD Dec 05, 2018 20:48
[2018-12-05] MEDS: Atorvastatin 80mg tab ORAL SCH (21:22)
[2018-12-06] VITALS: BP 127/64
[2018-12-06] MEDS: Zolpidem 5mg tab ORAL PRN (00:09)
[2018-12-06] MEDS: Albuterol/Ipratropium 3ml neb HHN SCH ×4 (01:30→19:57)
[2018-12-06 04:00] VITALS: BP 130/71
[2018-12-06] MEDS: Solu-MEDROL 125mg Inj IVP SCH ×2 (06:14→21:02)
--- NOTE | 2018-12-06 07:08 | NUR ---
HAND-OFF: Report given to Gina HERNÁNDEZ.
--- NOTE | 2018-12-06 07:24 | NUR ---
NURSE NOTES: received patient report from radha persaud . patient is on bed asleep. not in acute distress. comfortable. on RA. no arrythmias reported during the night. bed is low and locked for safety. will continue plan of care. Addendum: 12/06/18 at 0728 by JESUS YANG RN wrong entry
--- NOTE | 2018-12-06 07:29 | NUR ---
NURSE NOTES: received patient report from christa persaud . patient is on bed asleep. not in acute distress. comfortable. on RA. no arrythmias reported during the night. bed is low and locked for safety. will continue plan of care.
--- NOTE | 2018-12-06 07:58 | NUR ---
CASE MANAGEMENT:REVIEW 12/06/18 SI: ACUTE COPD/ASTHMA EXACERBATION. ACS 98.4 90 20 130/71 96% ON RA TROPONIN(-) X4 IS: IV SOLUMEDROL Q8HRS SPIRIVA INH QD LIPITOR PO QHS VIBRAMYCIN PO Q12 ADVAIR INH BID DUONEB HHN Q6HRS ASA PO QD NORVASC PO QD LISINOPRIL PO QD HEPARIN SQ Q12 : TELEMETRY STATUS
[2018-12-06 08:00] VITALS: BP 158/79
[2018-12-06] MEDS: Aspirin Baby 81mg ORAL SCH (08:30)
[2018-12-06] MEDS: Lisinopril 20mg tab ORAL SCH (08:30)
[2018-12-06] MEDS: Heparin 5000 units/ml inj SUBQ SCH ×2 (08:31→21:05)
[2018-12-06] MEDS ORDERED: Azithromycin 250mg tab ORAL SCH (09:00)
[2018-12-06] MEDS: Wixela 250/50 Inhaler - 60 dose INH SCH ×2 (09:20→19:57)
--- NOTE | 2018-12-06 09:58 | General Progress Note ---
Assessment/Plan Assessment/Plan s: I am ok O: no chest pain , no SOB PHYSICAL EXAMINATION: HEAD AND NECK: Atraumatic and normocephalic. CHEST: Clear to auscultation. HEART: S1, S2. CHEST: Diffuse bronchial breathing sounds with scattered wheezing. ABDOMEN: Obese and soft. No organomegaly. MUSCULOSKELETAL: No gross lateralized motor deficit. NEUROLOGY: The patient is awake, alert, and oriented x3. Medication : Reviewed and reconciled ASSESSMENT AND PLAN: 1. Asthma/COPD exacerbation. 2. Chest pain, possibility of atypical versus acute coronary syndrome. 3. GI and DVT prophylaxis. Plan: 1- Asthma /copd exacerbation 2- Bronchitis 3- Chest pain : atypical Plan: Normal echo negative Troponin Will followup as o/p Subjective Allergies: Coded Allergies: No Known Allergies (Verified Allergy, Mild, 12/11/07) Objective Last 24 Hour Vital Signs Date Time Temp Pulse Resp B/P (MAP) Pulse Ox O2 Delivery O2 Flow Rate FiO2 12/06/18 09:21 88 18 98 Room Air 12/06/18 09:21 88 18 98 Room Air 21 12/06/18 08:30 158/79 12/06/18 08:30 92 158/79 12/06/18 08:00 97.8 92 18 158/79 (105) 96 12/06/18 08:00 Room Air 12/06/18 07:29 21 12/06/18 07:29 Room Air 21 12/06/18 07:29 Room Air 21 12/06/18 04:00 98.4 90 20 130/71 (90) 96 12/06/18 04:00 75 12/06/18 01:30 Room Air 12/06/18 01:30 21 12/06/18 01:30 Room Air 12/06/18 00:00 98.9 87 20 127/64 (85) 97 12/06/18 00:00 75 12/05/18 21:00 Room Air 12/05/18 20:17 79 18 97 Room Air 21 12/05/18 20:17 21 12/05/18 20:14 75 18 Room Air 21 12/05/18 20:10 78 18 94 Room Air 21 12/05/18 20:06 Room Air 12/05/18 20:06 Room Air 12/05/18 20:00 101 12/05/18 20:00 98.1 89 20 131/75 (93) 94 12/05/18 16:00 98.0 87 20 135/73 (93) 94 12/05/18 16:00 88 12/05/18 13:34 78 16 100 Room Air 21 12/05/18 13:24 36 12/05/18 13:24 85 20 97 Room Air 21 12/05/18 12:00 98.1 82 20 129/69 (89) 94 12/05/18 11:38 81 Intake and Output 12/05/18 12/06/18 19:00 07:00 Intake Total 720 ml Balance 720 ml Intake Oral 720 ml # Voids 3 4 Laboratory Tests 12/05/18 10:50: D-Dimer 0.54H 12/05/18 12:45: Troponin I 0.017 12/05/18 19:55: Troponin I 0.000 Height (Feet): 5 Height (Inches): 6.00 Weight (Pounds): 210 Jaycee Vera MD Dec 06, 2018 09:57
--- NOTE | 2018-12-06 10:49 | Pulmonology Progress Note ---
Assessment/Plan Problems: (1) COPD exacerbation (2) Bronchitis with chronic airway obstruction Assessment/Plan ASSESSMENT: The patient is a 68-year-old female, former smoker, presenting with shortness of breath and atypical chest pain. She has had two negative troponins and does not have chest pain per se. Her shortness of breath is likely secondary to an exacerbation of her chronic obstructive pulmonary disease. We will check a D-dimer to rule out venous thromboembolism as well. PROBLEM LIST: 1. COPD/asthma with acute exacerbation. 2. Atypical chest pain, status post rule out ACS. 3. Former smoker. 4. Hypertension, hyperlipidemia, CAD, CHF. TREATMENT PLAN: 1. Optimize pulmonary hygiene/mobilize as tolerated. 2. P.r.n. O2 to keep saturations greater than 90%. 3. Pldrw-dkp-covta and p.r.n. bronchodilators. 4. Discontinue QVAR. 5. Continue Spiriva. 6. Symbicort, not on formulary, continue Advair. 7. Decrease SM to 40 IV BID, taper as able. 8. Continue doxycycline (D2) 9. Monitor for signs of respiratory infection. 10. The patient should have optimization of her inhaler regimen as an outpatient. 11. DVT prophylaxis, heparin subcutaneous. 12. Continue to abstain from smoking. Subjective Allergies: Coded Allergies: No Known Allergies (Verified Allergy, Mild, 12/11/07) Subjective AFVSS on RA Less cough less wheezing less SOB no CP no FC + OOB Objective Last 24 Hour Vital Signs Date Time Temp Pulse Resp B/P (MAP) Pulse Ox O2 Delivery O2 Flow Rate FiO2 12/06/18 09:21 88 18 98 Room Air 21 12/06/18 09:21 88 18 98 Room Air 21 12/06/18 08:30 158/79 12/06/18 08:30 92 158/79 12/06/18 08:00 97.8 92 18 158/79 (105) 96 12/06/18 08:00 65 12/06/18 08:00 Room Air 12/06/18 07:29 21 12/06/18 07:29 Room Air 21 12/06/18 07:29 Room Air 21 12/06/18 04:00 98.4 90 20 130/71 (90) 96 12/06/18 04:00 75 12/06/18 01:30 Room Air 12/06/18 01:30 21 12/06/18 01:30 Room Air 12/06/18 00:00 98.9 87 20 127/64 (85) 97 12/06/18 00:00 75 12/05/18 21:00 Room Air 12/05/18 20:17 79 18 97 Room Air 21 12/05/18 20:17 21 12/05/18 20:14 75 18 Room Air 21 12/05/18 20:10 78 18 94 Room Air 21 12/05/18 20:06 Room Air 12/05/18 20:06 Room Air 12/05/18 20:00 101 12/05/18 20:00 98.1 89 20 131/75 (93) 94 12/05/18 16:00 98.0 87 20 135/73 (93) 94 12/05/18 16:00 88 12/05/18 13:34 78 16 100 Room Air 21 12/05/18 13:24 36 12/05/18 13:24 85 20 97 Room Air 21 12/05/18 12:00 98.1 82 20 129/69 (89) 94 12/05/18 11:38 81 Intake and Output 12/05/18 12/06/18 19:00 07:00 Intake Total 720 ml Balance 720 ml Intake Oral 720 ml # Voids 3 4 General Appearance: WD/WN, no acute distress HEENT: normocephalic, atraumatic, anicteric, mucous membranes moist Respiratory/Chest: rhonchi Cardiovascular: normal peripheral pulses, normal rate, regular rhythm Abdomen: normal bowel sounds, soft, non tender, no organomegaly, non distended , no mass Extremities: no cyanosis, no clubbing, no edema Microbiology Date/Time Source Procedure Growth Status 12/04/18 23:15 Blood Blood Culture - Preliminary NO GROWTH AFTER 24 HOURS Resulted 12/04/18 23:00 Blood Blood Culture - Preliminary NO GROWTH AFTER 24 HOURS Resulted Laboratory Tests 12/05/18 10:50: D-Dimer 0.54H 12/05/18 12:45: Troponin I 0.017 12/05/18 19:55: Troponin I 0.000 Current Medications Medications (Trade) Dose Ordered Sig/Alysa Route PRN Reason Start Time Stop Time Status Last Admin Dose Admin Acetaminophen (Tylenol) 650 mg Q4H PRN ORAL Mild Pain/Temp > 100.5 12/05/18 03:15 01/04/19 03:14 Albuterol/ Ipratropium (Albuterol/ Ipratropium) 3 ml Q4H PRN HHN Shortness of Breath 12/05/18 03:15 12/10/18 03:14 Albuterol/ Ipratropium (Albuterol/ Ipratropium) 3 ml Q4H PRN HHN Shortness of Breath 12/05/18 10:30 12/10/18 10:29 Albuterol/ Ipratropium (Albuterol/ Ipratropium) 3 ml Q6HRT HHN 12/05/18 13:00 12/10/18 12:59 12/05/18 20:10 Amlodipine Besylate (Norvasc) 10 mg DAILY ORAL 12/05/18 09:00 01/04/19 08:59 12/06/18 08:30 Aspirin (ASA) 81 mg DAILY ORAL 12/05/18 09:00 01/04/19 08:59 12/06/18 08:30 Atorvastatin Calcium (Lipitor) 80 mg BEDTIME ORAL 12/05/18 21:00 01/04/19 20:59 12/05/18 21:22 Doxycycline Monohydrate (Vibramycin) 100 mg EVERY 12 HOURS ORAL 12/05/18 21:00 12/12/18 20:59 12/06/18 08:30 Heparin Sodium (Porcine) (Heparin 5000 units/ml) 5,000 units EVERY 12 HOURS SUBQ 12/05/18 09:00 01/04/19 08:59 12/06/18 08:31 Lisinopril (Prinivil) 40 mg DAILY ORAL 12/05/18 09:00 01/04/19 08:59 12/06/18 08:30 Methylprednisolone Sodium Succinate (Solu-MEDROL) 60 mg EVERY 8 HOURS IVP 12/05/18 06:00 01/04/19 05:59 12/06/18 06:14 Morphine Sulfate (Morphine Sulfate) 2 mg Q8HR PRN IVP Severe Pain (Pain Scale 7-10) 12/05/18 03:15 12/12/18 03:14 Pantoprazole (Protonix) 40 mg DAILY ORAL 12/05/18 09:00 01/04/19 08:59 12/06/18 08:29 Salmeterol Xinafoate/ Fluticasone (Advair 250/50 Diskus) 1 puffs BID INH 12/05/18 18:00 01/04/19 17:59 12/06/18 09:20 Tiotropium [place] (Spiriva Inhaler) 1 puff DAILY INH 12/06/18 09:00 01/05/19 08:59 12/06/18 09:20 Zolpidem Tartrate (Ambien) 5 mg HSPRN PRN ORAL Insomnia 12/05/18 22:30 12/12/18 22:29 12/06/18 00:09 Blake Frederick MD Dec 06, 2018 10:49
[2018-12-06 12:00] VITALS: BP 112/69
--- NOTE | 2018-12-06 13:39 | NUR ---
NURSE NOTES: received patient A/A/Ox4, verbally responsive. hob elevated to alleviate ventilation. no acute resp distress noted. siderails are up x3, call light is within reach. bed in the lowest position. will cont to monitor.
[2018-12-06 16:00] VITALS: BP 135/55
--- NOTE | 2018-12-06 17:03 | Infectious Diseases Prog Note ---
Assessment/Plan Problems: (1) Bronchitis with chronic airway obstruction Assessment & Plan: continue doxycycline empirically , continue inhalers and steroids (2) COPD exacerbation Assessment & Plan: due to the above, continue inhalers, taper steroids, o2 therapy as needed (3) ACS (acute coronary syndrome) Assessment & Plan: cardiac work up as per cardiology Subjective Constitutional: Reports: no symptoms HEENT: Reports: no symptoms Respiratory: Reports: dry cough, other - wheezing Breasts: Reports: no symptoms Cardiovascular: Reports: no symptoms Gastrointestinal/Abdominal: Reports: no symptoms Genitourinary: Reports: no symptoms Neurologic: Reports: no symptoms Psychiatric: Reports: no symptoms Skin: Reports: no symptoms Endocrine: Reports: no symptoms Hematologic: Reports: no symptoms Musculoskeletal: Reports: no symptoms Allergies: Coded Allergies: No Known Allergies (Verified Allergy, Mild, 12/11/07) Objective Vital Signs Last 24 Hour Vital Signs Date Time Temp Pulse Resp B/P (MAP) Pulse Ox O2 Delivery O2 Flow Rate FiO2 12/06/18 13:17 70 16 99 Room Air 21 12/06/18 13:11 21 12/06/18 13:11 68 16 99 Room Air 21 12/06/18 12:00 98.1 79 16 112/69 (83) 99 12/06/18 09:21 88 18 98 Room Air 21 12/06/18 09:21 88 18 98 Room Air 21 12/06/18 08:30 158/79 12/06/18 08:30 92 158/79 12/06/18 08:00 97.8 92 18 158/79 (105) 96 12/06/18 08:00 65 12/06/18 08:00 Room Air 12/06/18 07:29 21 12/06/18 07:29 Room Air 21 12/06/18 07:29 Room Air 21 12/06/18 04:00 98.4 90 20 130/71 (90) 96 12/06/18 04:00 75 12/06/18 01:30 Room Air 12/06/18 01:30 21 12/06/18 01:30 Room Air 12/06/18 00:00 98.9 87 20 127/64 (85) 97 12/06/18 00:00 75 12/05/18 21:00 Room Air 12/05/18 20:17 79 18 97 Room Air 21 12/05/18 20:17 21 12/05/18 20:14 75 18 Room Air 21 12/05/18 20:10 78 18 94 Room Air 21 12/05/18 20:06 Room Air 12/05/18 20:06 Room Air 12/05/18 20:00 101 12/05/18 20:00 98.1 89 20 131/75 (93) 94 Height (Feet): 5 Height (Inches): 6.00 Weight (Pounds): 210 General Appearance: WD/WN, no acute distress HEENT: normocephalic, atraumatic, anicteric, mucous membranes moist, PERRL, EOMI, pharynx normal, supple, no JVD Respiratory/Chest: chest wall non-tender, no respiratory distress, no accessory muscle use, decreased breath sounds, expiratory wheezing Cardiovascular: normal peripheral pulses, normal rate, regular rhythm, no gallop/murmur, no JVD Abdomen: normal bowel sounds, soft, non tender, no organomegaly, non distended , no mass, no scars Extremities: no cyanosis, no clubbing Skin: no rash, no lesions, no ulcers Neurologic/Psychiatric: alert, oriented x 3, responsive Lymphatic: no neck adenopathy, no groin adenopathy Musculoskeletal: normal muscle bulk, no effusion Microbiology Date/Time Source Procedure Growth Status 12/04/18 23:15 Blood Blood Culture - Preliminary NO GROWTH AFTER 24 HOURS Resulted 12/04/18 23:00 Blood Blood Culture - Preliminary NO GROWTH AFTER 24 HOURS Resulted Laboratory Tests Test 12/05/18 19:55 Troponin I 0.000 ng/mL (0.000-0.056) Current Medications Medications (Trade) Dose Ordered Sig/Alysa Route PRN Reason Start Time Stop Time Status Last Admin Dose Admin Acetaminophen (Tylenol) 650 mg Q4H PRN ORAL Mild Pain/Temp > 100.5 12/05/18 03:15 01/04/19 03:14 Albuterol/ Ipratropium (Albuterol/ Ipratropium) 3 ml Q4H PRN HHN Shortness of Breath 12/05/18 10:30 12/10/18 10:29 Albuterol/ Ipratropium (Albuterol/ Ipratropium) 3 ml Q6HRT HHN 12/05/18 13:00 12/10/18 12:59 12/06/18 13:10 Amlodipine Besylate (Norvasc) 10 mg DAILY ORAL 12/05/18 09:00 01/04/19 08:59 12/06/18 08:30 Aspirin (ASA) 81 mg DAILY ORAL 12/05/18 09:00 01/04/19 08:59 12/06/18 08:30 Atorvastatin Calcium (Lipitor) 80 mg BEDTIME ORAL 12/05/18 21:00 01/04/19 20:59 12/05/18 21:22 Doxycycline Monohydrate (Vibramycin) 100 mg EVERY 12 HOURS ORAL 12/05/18 21:00 12/12/18 20:59 12/06/18 08:30 Heparin Sodium (Porcine) (Heparin 5000 units/ml) 5,000 units EVERY 12 HOURS SUBQ 12/05/18 09:00 01/04/19 08:59 12/06/18 08:31 Lisinopril (Prinivil) 40 mg DAILY ORAL 12/05/18 09:00 01/04/19 08:59 12/06/18 08:30 Methylprednisolone Sodium Succinate (Solu-MEDROL) 60 mg Q12HR IVP 12/06/18 21:00 01/05/19 20:59 Morphine Sulfate (Morphine Sulfate) 2 mg Q8HR PRN IVP Severe Pain (Pain Scale 7-10) 12/05/18 03:15 12/12/18 03:14 Pantoprazole (Protonix) 40 mg DAILY ORAL 12/05/18 09:00 01/04/19 08:59 12/06/18 08:29 Salmeterol Xinafoate/ Fluticasone (Advair 250/50 Diskus) 1 puffs BID INH 12/05/18 18:00 01/04/19 17:59 12/06/18 09:20 Tiotropium [place] (Spiriva Inhaler) 1 puff DAILY INH 12/06/18 09:00 01/05/19 08:59 12/06/18 09:20 Zolpidem Tartrate (Ambien) 5 mg HSPRN PRN ORAL Insomnia 12/05/18 22:30 12/12/18 22:29 12/06/18 00:09 Kathleen Hayes M.D. Dec 06, 2018 17:03
--- NOTE | 2018-12-06 19:24 | NUR ---
HAND-OFF: Report given to Kaylee.
--- NOTE | 2018-12-06 19:30 | NUR ---
NURSE NOTES: Report received from Kelsey ALCARAZ. Pt is resting in bed in stable condition. Pt is awake, alert, and oriented x4. Pt is on room air and breathing is even and unlabored. No acute distress noted. IV site is asymptomatic, patent, and intact. Bed is in lowest position with brake engaged and side rails up x2. Call light and side table placed within reach. Will continue to monitor.
--- NOTE | 2018-12-06 19:49 | NUR ---
NURSE NOTES: MD Michaels confirmed plan for stress test in AM. made aware of d-dimer slightly elevated to 0.54 on 12/05/18. No new orders at this time. Will notify MD Vera and MD Frederick.
--- NOTE | 2018-12-06 19:57 | NUR ---
NURSE NOTES: MD Vera notified of pt d-dimer result from 12/05/18. Per , no new orders at this time.
[2018-12-06 20:00] VITALS: BP 120/63
[2018-12-06] MEDS: Atorvastatin 80mg tab ORAL SCH (21:02)
--- NOTE | 2018-12-06 21:15 | NUR ---
NURSE NOTES: MD Frederick notified of pt d-dimer result from 12/05/18. Per , no new orders at this time.
--- NOTE | 2018-12-06 21:52 | NUR ---
NURSE NOTES: Per patient, she would prefer to do stress test as outpatient and go home tomorrow. MD Michaels notified of patient preferences. After further discussion, pt agreeable to stress test in AM.
--- NOTE | 2018-12-06 21:59 | Cardiology Progress Note ---
Assessment/Plan Assessment/Plan 1. Chest pain with shortness of breath, most likely due to acute exacerbation of asthma in view of positive pulmonary examination and rhonchi. The patient claims that she had a normal coronary angiography, however , we would like to proceed with a pharmacological stress test to rule out obstructive CAD. Acute myocardial infarction is ruled out. A 2D echocardiography also shows normal LV systolic function with no wall motion abnormalities and LVEF of approximately 60%. Further therapeutic and diagnostic decision will be based on results of the nuclear stress test. 2. Hypertensive heart disease. Subjective Subjective Sinus rhythm at rate of 79. Objective Last 24 Hour Vital Signs Date Time Temp Pulse Resp B/P (MAP) Pulse Ox O2 Delivery O2 Flow Rate FiO2 12/06/18 20:02 79 18 98 Room Air 21 12/06/18 20:01 76 18 98 Room Air 21 12/06/18 20:00 76 18 98 Room Air 21 12/06/18 19:55 74 18 97 Room Air 21 12/06/18 16:00 98.0 92 18 135/55 (81) 97 12/06/18 13:17 70 16 99 Room Air 21 12/06/18 13:11 21 12/06/18 13:11 68 16 99 Room Air 21 12/06/18 12:00 98.1 79 16 112/69 (83) 99 12/06/18 09:21 88 18 98 Room Air 21 12/06/18 09:21 88 18 98 Room Air 21 12/06/18 08:30 158/79 12/06/18 08:30 92 158/79 12/06/18 08:00 97.8 92 18 158/79 (105) 96 12/06/18 08:00 65 12/06/18 08:00 Room Air 12/06/18 07:29 21 12/06/18 07:29 Room Air 21 12/06/18 07:29 Room Air 21 12/06/18 04:00 98.4 90 20 130/71 (90) 96 12/06/18 04:00 75 12/06/18 01:30 Room Air 12/06/18 01:30 21 12/06/18 01:30 Room Air 12/06/18 00:00 98.9 87 20 127/64 (85) 97 12/06/18 00:00 75 Intake and Output 12/05/18 12/06/18 19:00 07:00 Intake Total 720 ml Balance 720 ml Intake Oral 720 ml # Voids 3 4 2D Echo: LVEF 55%, Mild LAE, Grade I LVDD, Mild LVH, RVSP 35 mmHg Microbiology Date/Time Source Procedure Growth Status 12/04/18 23:15 Blood Blood Culture - Preliminary NO GROWTH AFTER 24 HOURS Resulted 12/04/18 23:00 Blood Blood Culture - Preliminary NO GROWTH AFTER 24 HOURS Resulted Objective HEENT: Atraumatic and normocephalic. Anicteric. Pupils are equal, round, and accommodation. Extraocular muscles intact. NECK: JVP is less than 5 cm. No carotid bruit. Carotid upstroke is 2+ bilaterally. CARDIOVASCULAR: Normal S1, S2. Regular rate and rhythm. No murmurs, gallops, or rubs. PMI is at fourth intercostal space in the midclavicular line. LUNGS: There is some bilateral expiratory rhonchi with prolonged expiratory phase. No crackles. ABDOMEN: Soft, nontender, and nondistended. No hepatosplenomegaly. Positive bowel sounds. EXTREMITIES: No evidence of edema, clubbing, or cyanosis. Everton Michaels MD Dec 06, 2018 21:59
[2018-12-07] VITALS: BP 116/66
[2018-12-07] MEDS: Albuterol/Ipratropium 3ml neb HHN SCH ×4 (01:48→20:29)
[2018-12-07 04:00] VITALS: BP 119/65
--- NOTE | 2018-12-07 06:02 | NUR ---
NURSE NOTES: Message left for MD Michaels to notify that patient is active asthmatic and ask if he would like to change to dobutamine stress test. Pending response from MD for further instructions. building services technician, Paul, and DAPHNIE To aware of situation.
--- NOTE | 2018-12-07 07:34 | NUR ---
NURSE NOTES: MD Michaels states that he would like to continue with lexiscan stress test. Endorsed plan of care to AM shift EDGAR Carter.
--- NOTE | 2018-12-07 07:36 | NUR ---
HAND-OFF: Report given to Raul HERNÁNDEZ. Pt is resting in bed in stable condition. No acute distress noted. Endorsed plan of care.
[2018-12-07 08:00] VITALS: BP 126/61
[2018-12-07] MEDS: Aspirin Baby 81mg ORAL SCH (10:25)
[2018-12-07] MEDS: Lisinopril 20mg tab ORAL SCH (10:25)
[2018-12-07] MEDS: Heparin 5000 units/ml inj SUBQ SCH ×2 (10:26→20:25)
[2018-12-07] MEDS: Solu-MEDROL 125mg Inj IVP SCH (10:34)
[2018-12-07] MEDS: Wixela 250/50 Inhaler - 60 dose INH SCH ×2 (10:41→20:34)
[2018-12-07 12:00] VITALS: BP 151/66
[2018-12-07] MEDS ORDERED: Lexiscan 0.4mg/5ml syringe IV PRN (12:00)
--- NOTE | 2018-12-07 13:14 | Consultation ---
DATE OF CONSULTATION: 12/05/2018 CARDIOLOGY CONSULTATION CONSULTING PHYSICIAN: Everton Michaels M.D. REFERRING PHYSICIAN: Jaycee Vera M.D. REASON FOR CONSULTATION: Management of chest pain. HISTORY OF PRESENT ILLNESS: The patient is a very unfortunate 68-year-old lady who presents to the hospital with complaints of chest tightness with associated shortness of breath. The patient had the above complaints for just about a day. She claims that chest pain is pressure-like in the midsternal area and in the past few weeks, she has been noticing decrease in exercise tolerance. She also has history of chronic obstructive pulmonary disease and had experienced some wheezing as well. At the time of arrival to the hospital, initial blood pressure was 127/60 mmHg and heart rate was 78. Her coronary artery disease risk factors include a history of hypercholesterolemia and history of cerebrovascular accident. She also states that she had history of heart attack in the past, however, coronary angiography done at [facility] at [place], did not show any evidence of coronary artery stenosis. PAST MEDICAL HISTORY: COPD, history of CVA, history of hypercholesterolemia, history of heart attack with normal coronary angiography, and history of hypertension. FAMILY HISTORY: No premature coronary artery disease in first-degree relatives. HABITS: Denies any tobacco, alcohol, or illicit drug use. ALLERGIES: No known drug allergies. MEDICATIONS: List of medications at home includes amlodipine 10 mg p.o. daily, aspirin 325 mg p.o. daily, atenolol 50 mg p.o. daily, QVAR two puffs inhaler twice daily, and Symbicort one puff twice daily, Lasix 40 mg p.o. daily, lisinopril 40 mg p.o. daily, Crestor 40 mg p.o. daily, and Spiriva one puff inhaler daily. REVIEW OF SYSTEMS: HEENT: Denies any headache, diplopia, or blurred vision. CONSTITUTIONAL: Denies any fever, chills, night sweats, or weight loss. CARDIOVASCULAR: Complains of chest pain and shortness of breath as mentioned above. Denies any PND, orthopnea, leg swelling, or syncope. PULMONARY: Denies any nausea, vomiting, diarrhea, constipation, abdominal pain, or GI bleed. GENITOURINARY: Denies any hematuria, dysuria, or incontinence. NEUROLOGY: Denies any motor dysfunction, sensory deficit, or altered speech. PHYSICAL EXAMINATION: VITAL SIGNS: Blood pressure at the time of arrival to the hospital was 127/60, pulse of 78, respirations 21, temperature 98.4 degrees Fahrenheit, and O2 saturation 94% on room air. GENERAL: The patient is a very pleasant 68-year-old female who was seen in Cardiology consultation, in no apparent respiratory distress. Alert and oriented x4. HEENT: Atraumatic and normocephalic. Anicteric. Pupils are equal, round, and accommodation. Extraocular muscles intact. NECK: JVP is less than 5 cm. No carotid bruit. Carotid upstroke is 2+ bilaterally. CARDIOVASCULAR: Normal S1, S2. Regular rate and rhythm. No murmurs, gallops, or rubs. PMI is at fourth intercostal space in the midclavicular line. LUNGS: There is some bilateral expiratory rhonchi with 05:01 phase. I do not hear any crackles. ABDOMEN: Soft, nontender, and nondistended. No hepatosplenomegaly. Positive bowel sounds. EXTREMITIES: No evidence of edema, clubbing, or cyanosis. LABORATORY FINDINGS: WBC is 9.6, hemoglobin 12.3, hematocrit of 38.6, and platelet count 335,000. Chemistry was significant for sodium of 144, potassium is 3.8, chloride 106, bicarbonate 27, BUN of 23, creatinine 1.1, glucose 120, and calcium is 9.5. ProBNP was 80. Troponin-I level x2 was negative. D-dimer was 0.54. IMAGING STUDIES: Chest x-ray with no acute cardiopulmonary disease. A 2D echocardiography showed normal LV systolic function with LVEF of 55 to 60%, mild left atrial enlargement, grade 1 LV diastolic dysfunction or impaired LV relaxation, and mild tricuspid regurgitation with right ventricular systolic pressure measured at 35 mmHg consistent with mild pulmonary hypertension. ASSESSMENT AND PLAN: The patient is a very unfortunate 68-year-old female, who was seen in Cardiology consultation. 1. Chest pain with shortness of breath, most likely due to acute exacerbation of asthma in view of positive pulmonary examination and rhonchi. The patient claims that she had a normal coronary angiography, however, we would like to proceed with a pharmacological stress test to rule out obstructive CAD. Acute myocardial infarction is ruled out. A 2D echocardiography also shows normal LV systolic function with no wall motion abnormalities and LVEF of approximately 60%. Further therapeutic and diagnostic decision will be based on results of the nuclear stress test. 2. History of hypertension. We will continue amlodipine together with lisinopril. I would like to place a hold on atenolol for the fact that it is probably safe to withhold it as she has acute bronchoconstriction. I will also love to withhold the furosemide as she showed signs of prerenal azotemia and there is no echocardiographic evidence of heart failure. I would like to thank, Dr. Vera, for allowing me to participate in care of this patient. Everton Michaels M.D. DR: AMINA JOB#: [id number] CC:
--- NOTE | 2018-12-07 14:00 | NUR ---
NURSE NOTES: [facility] is resting in bed waiting for Dr. Michaels. Patient denies pain, SOB, or distress. Patient on heart monitor. patient states she is wheezing and stress test was cancelled. Dr. Michaels will see the patient later today.
--- NOTE | 2018-12-07 14:07 | General Progress Note ---
Assessment/Plan Assessment/Plan s: I am feeling very tired O: no chest pain , no SOB PHYSICAL EXAMINATION: HEAD AND NECK: Atraumatic and normocephalic. CHEST: Clear to auscultation. HEART: S1, S2. CHEST: Diffuse bronchial breathing sounds with scattered wheezing. ABDOMEN: Obese and soft. No organomegaly. MUSCULOSKELETAL: No gross lateralized motor deficit. NEUROLOGY: The patient is awake, alert, and oriented x3. Medication : Reviewed and reconciled ASSESSMENT AND PLAN: 1. Asthma/COPD exacerbation. 2. Chest pain, possibility of atypical versus acute coronary syndrome. 3. GI and DVT prophylaxis. Plan: 1- Asthma /copd exacerbation 2- Bronchitis 3- Chest pain : atypical ! Plan: Normal echo negative Troponin Pending completion of MPI Notes from Cardiology notified Subjective Allergies: Coded Allergies: No Known Allergies (Verified Allergy, Mild, 12/11/07) Objective Last 24 Hour Vital Signs Date Time Temp Pulse Resp B/P (MAP) Pulse Ox O2 Delivery O2 Flow Rate FiO2 12/07/18 12:32 89 20 99 Room Air 21 12/07/18 12:22 78 20 97 Room Air 21 12/07/18 12:00 97.6 78 18 151/66 (94) 96 12/07/18 10:44 77 18 99 Room Air 21 12/07/18 10:43 77 18 99 Room Air 21 12/07/18 10:25 126/61 12/07/18 10:25 92 126/61 12/07/18 09:00 Room Air 12/07/18 08:00 97.6 92 18 126/61 (82) 98 12/07/18 08:00 97.6 12/07/18 08:00 70 12/07/18 07:37 76 18 99 Room Air 21 12/07/18 07:27 88 18 96 Room Air 21 12/07/18 04:00 81 12/07/18 04:00 98.0 90 18 119/65 (83) 99 12/07/18 01:52 75 18 99 Room Air 21 12/07/18 01:41 72 18 96 Room Air 21 12/07/18 00:00 75 12/07/18 00:00 98.9 95 19 116/66 (83) 99 12/06/18 21:00 Room Air 12/06/18 20:02 79 18 98 Room Air 21 12/06/18 20:01 76 18 98 Room Air 21 12/06/18 20:00 75 12/06/18 20:00 98.0 85 18 120/63 (82) 98 12/06/18 20:00 76 18 98 Room Air 21 12/06/18 19:55 74 18 97 Room Air 21 12/06/18 16:00 98.0 92 18 135/55 (81) 97 Intake and Output 12/06/18 12/07/18 19:00 07:00 Intake Total 480 ml Balance 480 ml Intake Oral 480 ml # Voids 6 1 # Bowel Movements 1 Height (Feet): 5 Height (Inches): 6.00 Weight (Pounds): 210 Jaycee Vera MD Dec 07, 2018 14:07
--- NOTE | 2018-12-07 14:26 | NUR ---
*-* INSURANCE *-* REVIEWS AND UPDATED CLINICALS HAVE BEEN FAXED TO: [facility]TH[facility] P:[phone] F:[phone]
--- NOTE | 2018-12-07 14:54 | Pulmonology Progress Note ---
Assessment/Plan Problems: (1) COPD exacerbation (2) Bronchitis with chronic airway obstruction Assessment/Plan ASSESSMENT: The patient is a 68-year-old female, former smoker, presenting with shortness of breath and atypical chest pain. She has had two negative troponins and does not have chest pain per se. Her shortness of breath is likely secondary to an exacerbation of her chronic obstructive pulmonary disease. We will check a D-dimer to rule out venous thromboembolism as well. PROBLEM LIST: 1. COPD/asthma with acute exacerbation. 2. Atypical chest pain, status post rule out ACS. 3. Former smoker. 4. Hypertension, hyperlipidemia, CAD, CHF. TREATMENT PLAN: 1. Optimize pulmonary hygiene/mobilize as tolerated. 2. P.r.n. O2 to keep saturations greater than 90%. 3. Gufpt-jgg-[id number] and p.r.n. bronchodilators. 4. Off QVAR. 5. Continue Spiriva. 6. Symbicort, not on formulary, continue Advair. 7. D/C SM, start Pred 60 & taper as able. 8. Continue doxycycline (D3) 9. NM stress test per cards 10. The patient should have optimization of her inhaler regimen as an outpatient. 11. DVT prophylaxis, heparin subcutaneous. 12. Continue to abstain from smoking. Subjective Allergies: Coded Allergies: No Known Allergies (Verified Allergy, Mild, 12/11/07) Subjective AFVSS on RA Less cough less wheezing less SOB no CP no FC + OOB Objective Last 24 Hour Vital Signs Date Time Temp Pulse Resp B/P (MAP) Pulse Ox O2 Delivery O2 Flow Rate FiO2 12/07/18 12:32 89 20 99 Room Air 21 12/07/18 12:22 78 20 97 Room Air 21 12/07/18 12:00 97.6 78 18 151/66 (94) 96 12/07/18 11:30 77 12/07/18 10:44 77 18 99 Room Air 21 12/07/18 10:43 77 18 99 Room Air 21 12/07/18 10:25 126/61 12/07/18 10:25 92 126/61 12/07/18 09:00 Room Air 12/07/18 08:00 97.6 92 18 126/61 (82) 98 12/07/18 08:00 97.6 12/07/18 08:00 70 12/07/18 07:37 76 18 99 Room Air 21 12/07/18 07:27 88 18 96 Room Air 21 12/07/18 04:00 81 12/07/18 04:00 98.0 90 18 119/65 (83) 99 12/07/18 01:52 75 18 99 Room Air 21 12/07/18 01:41 72 18 96 Room Air 21 12/07/18 00:00 75 12/07/18 00:00 98.9 95 19 116/66 (83) 99 12/06/18 21:00 Room Air 12/06/18 20:02 79 18 98 Room Air 21 12/06/18 20:01 76 18 98 Room Air 21 12/06/18 20:00 75 12/06/18 20:00 98.0 85 18 120/63 (82) 98 12/06/18 20:00 76 18 98 Room Air 21 12/06/18 19:55 74 18 97 Room Air 21 12/06/18 16:00 98.0 92 18 135/55 (81) 97 Intake and Output 12/06/18 12/07/18 18:59 06:59 Intake Total 480 ml Balance 480 ml Intake Oral 480 ml # Voids 6 1 # Bowel Movements 1 General Appearance: WD/WN, no acute distress HEENT: normocephalic, atraumatic, anicteric, mucous membranes moist Respiratory/Chest: chest wall non-tender, lungs clear, normal breath sounds, no respiratory distress, no accessory muscle use Cardiovascular: normal peripheral pulses, normal rate, regular rhythm Abdomen: normal bowel sounds, soft, non tender, no organomegaly, non distended Extremities: no cyanosis, no clubbing, no edema Microbiology Date/Time Source Procedure Growth Status 12/04/18 23:15 Blood Blood Culture - Preliminary NO GROWTH AFTER 48 HOURS Resulted 12/04/18 23:00 Blood Blood Culture - Preliminary NO GROWTH AFTER 48 HOURS Resulted Current Medications Medications (Trade) Dose Ordered Sig/Alysa Route PRN Reason Start Time Stop Time Status Last Admin Dose Admin Acetaminophen (Tylenol) 650 mg Q4H PRN ORAL Mild Pain/Temp > 100.5 12/05/18 03:15 01/04/19 03:14 12/07/18 07:30 Albuterol/ Ipratropium (Albuterol/ Ipratropium) 3 ml Q4H PRN HHN Shortness of Breath 3/12/19 10:30 12/10/18 10:29 Albuterol/ Ipratropium (Albuterol/ Ipratropium) 3 ml Q6HRT HHN 12/05/18 13:00 12/10/18 12:59 12/07/18 12:22 Amlodipine Besylate (Norvasc) 10 mg DAILY ORAL 12/05/18 09:00 01/04/19 08:59 12/07/18 10:25 Aspirin (ASA) 81 mg DAILY ORAL 12/05/18 09:00 01/04/19 08:59 12/07/18 10:25 Atorvastatin Calcium (Lipitor) 80 mg BEDTIME ORAL 12/05/18 21:00 01/04/19 20:59 12/06/18 21:02 Doxycycline Monohydrate (Vibramycin) 100 mg EVERY 12 HOURS ORAL 12/05/18 21:00 12/12/18 20:59 12/07/18 10:25 Heparin Sodium (Porcine) (Heparin 5000 units/ml) 5,000 units EVERY 12 HOURS SUBQ 12/05/18 09:00 01/04/19 08:59 12/07/18 10:26 Lisinopril (Prinivil) 40 mg DAILY ORAL 12/05/18 09:00 01/04/19 08:59 12/07/18 10:25 Methylprednisolone Sodium Succinate (Solu-MEDROL) 60 mg Q12HR IVP 12/06/18 21:00 01/05/19 20:59 12/07/18 10:34 Morphine Sulfate (Morphine Sulfate) 2 mg Q8HR PRN IVP Severe Pain (Pain Scale 7-10) 12/05/18 03:15 12/12/18 03:14 Pantoprazole (Protonix) 40 mg DAILY ORAL 12/05/18 09:00 01/04/19 08:59 12/07/18 10:25 Regadenoson (Lexiscan) 0.4 mg ONCE PRN IV stress test 12/07/18 12:00 12/07/18 18:00 Salmeterol Xinafoate/ Fluticasone (Advair 250/50 Diskus) 1 puffs BID INH 12/05/18 18:00 01/04/19 17:59 12/07/18 10:41 Tiotropium [place] (Spiriva Inhaler) 1 puff DAILY INH 12/06/18 09:00 01/05/19 08:59 12/07/18 10:40 Zolpidem Tartrate (Ambien) 5 mg HSPRN PRN ORAL Insomnia 12/05/18 22:30 12/12/18 22:29 12/06/18 00:09 Blake Frederick MD Dec 07, 2018 14:53
[2018-12-07 16:00] VITALS: BP 145/74
--- NOTE | 2018-12-07 16:16 | Infectious Diseases Prog Note ---
Assessment/Plan Problems: (1) Bronchitis with chronic airway obstruction Assessment & Plan: continue doxycycline empirically , continue inhalers and steroids (2) COPD exacerbation Assessment & Plan: due to the above, continue inhalers, taper steroids, o2 therapy as needed (3) ACS (acute coronary syndrome) Assessment & Plan: cardiac work up as per cardiology Subjective Constitutional: Reports: no symptoms HEENT: Reports: no symptoms Respiratory: Reports: dry cough, other - wheezing Breasts: Reports: no symptoms Cardiovascular: Reports: no symptoms Gastrointestinal/Abdominal: Reports: no symptoms Genitourinary: Reports: no symptoms Neurologic: Reports: no symptoms Psychiatric: Reports: no symptoms Skin: Reports: no symptoms Endocrine: Reports: no symptoms Hematologic: Reports: no symptoms Musculoskeletal: Reports: no symptoms Allergies: Coded Allergies: No Known Allergies (Verified Allergy, Mild, 12/11/07) Objective Vital Signs Last 24 Hour Vital Signs Date Time Temp Pulse Resp B/P (MAP) Pulse Ox O2 Delivery O2 Flow Rate FiO2 12/07/18 12:32 89 20 99 Room Air 12/07/18 12:22 78 20 97 Room Air 12/07/18 12:00 97.6 78 18 151/66 (94) 96 12/07/18 11:30 77 12/07/18 10:44 77 18 99 Room Air 21 12/07/18 10:43 77 18 99 Room Air 21 12/07/18 10:25 126/61 12/07/18 10:25 92 126/61 12/07/18 09:00 Room Air 12/07/18 08:00 97.6 92 18 126/61 (82) 98 12/07/18 08:00 97.6 12/07/18 08:00 70 12/07/18 07:37 76 18 99 Room Air 21 12/07/18 07:27 88 18 96 Room Air 21 12/07/18 04:00 81 12/07/18 04:00 98.0 90 18 119/65 (83) 99 12/07/18 01:52 75 18 99 Room Air 21 12/07/18 01:41 72 18 96 Room Air 12/07/18 00:00 75 12/07/18 00:00 98.9 95 19 116/66 (83) 99 12/06/18 21:00 Room Air 12/06/18 20:02 79 18 98 Room Air 21 12/06/18 20:01 76 18 98 Room Air 21 12/06/18 20:00 75 12/06/18 20:00 98.0 85 18 120/63 (82) 98 12/06/18 20:00 76 18 98 Room Air 21 12/06/18 19:55 74 18 97 Room Air 21 12/06/18 16:00 98.0 92 18 135/55 (81) 97 Height (Feet): 5 Height (Inches): 6.00 Weight (Pounds): 210 General Appearance: WD/WN, no acute distress HEENT: normocephalic, atraumatic, anicteric, mucous membranes moist, PERRL Respiratory/Chest: chest wall non-tender, no respiratory distress, no accessory muscle use, decreased breath sounds, expiratory wheezing Cardiovascular: normal peripheral pulses, normal rate, regular rhythm, no gallop/murmur, no JVD Abdomen: normal bowel sounds, soft, non tender, no organomegaly, non distended , no mass, no scars Genitourinary: normal external genitalia Extremities: no cyanosis, no clubbing Skin: no rash, no lesions, no ulcers Neurologic/Psychiatric: alert, oriented x 3, responsive Lymphatic: no neck adenopathy, no groin adenopathy Musculoskeletal: normal muscle bulk, no effusion Microbiology Date/Time Source Procedure Growth Status 12/04/18 23:15 Blood Blood Culture - Preliminary NO GROWTH AFTER 48 HOURS Resulted 12/04/18 23:00 Blood Blood Culture - Preliminary NO GROWTH AFTER 48 HOURS Resulted Current Medications Medications (Trade) Dose Ordered Sig/Alysa Route PRN Reason Start Time Stop Time Status Last Admin Dose Admin Acetaminophen (Tylenol) 650 mg Q4H PRN ORAL Mild Pain/Temp > 100.5 12/05/18 03:15 01/04/19 03:14 12/07/18 07:30 Albuterol/ Ipratropium (Albuterol/ Ipratropium) 3 ml Q4H PRN HHN Shortness of Breath 12/05/18 10:30 12/10/18 10:29 Albuterol/ Ipratropium (Albuterol/ Ipratropium) 3 ml Q6HRT HHN 12/05/18 13:00 12/10/18 12:59 12/07/18 12:22 Amlodipine Besylate (Norvasc) 10 mg DAILY ORAL 12/05/18 09:00 01/04/19 08:59 12/07/18 10:25 Aspirin (ASA) 81 mg DAILY ORAL 12/05/18 09:00 01/04/19 08:59 12/07/18 10:25 Atorvastatin Calcium (Lipitor) 80 mg BEDTIME ORAL 12/05/18 21:00 01/04/19 20:59 12/06/18 21:02 Doxycycline Monohydrate (Vibramycin) 100 mg EVERY 12 HOURS ORAL 12/05/18 21:00 12/12/18 20:59 12/07/18 10:25 Heparin Sodium (Porcine) (Heparin 5000 units/ml) 5,000 units EVERY 12 HOURS SUBQ 12/05/18 09:00 01/04/19 08:59 12/07/18 10:26 Lisinopril (Prinivil) 40 mg DAILY ORAL 12/05/18 09:00 01/04/19 08:59 12/07/18 10:25 Morphine Sulfate (Morphine Sulfate) 2 mg Q8HR PRN IVP Severe Pain (Pain Scale 7-10) 12/05/18 03:15 12/12/18 03:14 Pantoprazole (Protonix) 40 mg DAILY ORAL 12/05/18 09:00 01/04/19 08:59 12/07/18 10:25 Prednisone (predniSONE) 60 mg DAILY ORAL 12/08/18 09:00 01/07/19 08:59 Regadenoson (Lexiscan) 0.4 mg ONCE PRN IV stress test 12/07/18 12:00 12/07/18 18:00 Salmeterol Xinafoate/ Fluticasone (Advair 250/50 Diskus) 1 puffs BID INH 12/05/18 18:00 01/04/19 17:59 12/07/18 10:41 Tiotropium [place] (Spiriva Inhaler) 1 puff DAILY INH 12/06/18 09:00 01/05/19 08:59 12/07/18 10:40 Zolpidem Tartrate (Ambien) 5 mg HSPRN PRN ORAL Insomnia 12/05/18 22:30 12/12/18 22:29 12/06/18 00:09 Kathleen Hayes M.D. Dec 07, 2018 16:16
--- NOTE | 2018-12-07 19:00 | NUR ---
NURSE NOTES: received pt in stable condition. sitting at the edge of the bed. no acute distress no c/o pain at this time. safety precautions in place. will continue to monitor.
--- NOTE | 2018-12-07 19:15 | NUR ---
NURSE NOTES: Dr. Michaels went to patient.
--- NOTE | 2018-12-07 19:33 | NUR ---
HAND-OFF: Report given to EDGAR Mitchell.
[2018-12-07 20:00] VITALS: BP 136/87
[2018-12-07] MEDS: Atorvastatin 80mg tab ORAL SCH (20:17)
--- NOTE | 2018-12-07 23:57 | Cardiology Progress Note ---
Assessment/Plan Assessment/Plan 1. Chest pain with shortness of breath, most likely due to acute exacerbation of asthma in view of positive pulmonary examination and rhonchi. The patient claims that she had a normal coronary angiography, however , we would like to proceed with a pharmacological stress test to rule out obstructive CAD. Acute myocardial infarction is ruled out. A 2D echocardiography also shows normal LV systolic function with no wall motion abnormalities and LVEF of approximately 60%. Further therapeutic and diagnostic decision will be based on results of the nuclear stress test. 2. Hypertensive heart disease. Subjective Subjective Sinus rhythm at rate of 79. Objective Last 24 Hour Vital Signs Date Time Temp Pulse Resp B/P (MAP) Pulse Ox O2 Delivery O2 Flow Rate FiO2 12/07/18 21:00 Room Air 12/07/18 20:41 90 20 99 Room Air 21 12/07/18 20:40 90 20 99 Room Air 21 12/07/18 20:30 88 20 97 Room Air 21 12/07/18 20:26 88 20 96 Room Air 21 12/07/18 20:00 98.7 88 20 136/87 (103) 95 12/07/18 20:00 91 12/07/18 16:00 98.0 88 18 145/74 (97) 95 12/07/18 16:00 104 12/07/18 12:32 89 20 99 Room Air 12/07/18 12:22 78 20 97 Room Air 21 12/07/18 12:00 97.6 78 18 151/66 (94) 96 12/07/18 11:30 77 12/07/18 10:44 77 18 99 Room Air 12/07/18 10:43 77 18 99 Room Air 12/07/18 10:25 126/61 12/07/18 10:25 92 126/61 12/07/18 09:00 Room Air 12/07/18 08:00 97.6 92 18 126/61 (82) 98 12/07/18 08:00 97.6 12/07/18 08:00 70 12/07/18 07:37 76 18 99 Room Air 21 12/07/18 07:27 88 18 96 Room Air 21 12/07/18 04:00 81 12/07/18 04:00 98.0 90 18 119/65 (83) 99 12/07/18 01:52 75 18 99 Room Air 21 12/07/18 01:41 72 18 96 Room Air 21 12/07/18 00:00 75 12/07/18 00:00 98.9 95 19 116/66 (83) 99 Intake and Output 12/06/18 12/07/18 19:00 07:00 Intake Total 480 ml Balance 480 ml Intake Oral 480 ml # Voids 6 1 # Bowel Movements 1 Objective HEENT: Atraumatic and normocephalic. Anicteric. Pupils are equal, round, and accommodation. Extraocular muscles intact. NECK: JVP is less than 5 cm. No carotid bruit. Carotid upstroke is 2+ bilaterally. CARDIOVASCULAR: Normal S1, S2. Regular rate and rhythm. No murmurs, gallops, or rubs. PMI is at fourth intercostal space in the midclavicular line. LUNGS: There is some bilateral expiratory rhonchi with prolonged expiratory phase. No crackles. ABDOMEN: Soft, nontender, and nondistended. No hepatosplenomegaly. Positive bowel sounds. EXTREMITIES: No evidence of edema, clubbing, or cyanosis. Everton Michaels MD Dec 07, 2018 23:57
[2018-12-08] VITALS: BP 152/75
[2018-12-08] MEDS: Zolpidem 5mg tab ORAL PRN
--- NOTE | 2018-12-08 | NUR ---
NURSE NOTES: pt NPO at this time. explain pt not to eat or drink until the test is done pt verbalized understanding
[2018-12-08] MEDS: Albuterol/Ipratropium 3ml neb HHN SCH ×4 (01:32→20:40)
[2018-12-08 04:00] VITALS: BP 146/73
--- NOTE | 2018-12-08 06:41 | NUR ---
pt NPO since midnight. pt in stable condition during my shift. all needs meet during my shift. will endorse to incoming nurse.
--- NOTE | 2018-12-08 07:15 | NUR ---
NURSE NOTES: Received report from Paula HERNÁNDEZ. Denies pain, no signs of distress. NPO present for stress test. IV 20G LAC with saline lock. Bed locked low position. continue to monitor.
--- NOTE | 2018-12-08 07:25 | NUR ---
CASE MANAGEMENT:REVIEW 12/07/18 SI: ACUTE COPD/ASTHMA EXACERBATION. ACS 97.6 78 18 151/66 96% ON RA IS: IV LEXISCAN IV SOLUMEDROL Q8HRS SPIRIVA INH QD LIPITOR PO QHS VIBRAMYCIN PO Q12 ADVAIR INH BID DUONEB HHN Q6HRS ASA PO QD NORVASC PO QD LISINOPRIL PO QD HEPARIN SQ Q12 : TELEMETRY STATUS PLAN: CARDIAC STRESS TEST ORDERED 12/08/18 SI: ACUTE COPD/ASTHMA EXACERBATION. ACS 98.6 74 20 146/73 100% ON RA IS: PREDNISONE PO QD SPIRIVA INH QD VIBRAMYCIN PO Q12 ADVAIR INH BID DUONEB HHN Q6HRS RTC ASA PO QD NORVASC PO QD LISINOPRIL PO QD HEPARIN SQ Q12A : TELEMETRY STATUS DCP; FROM HOME
[2018-12-08 08:00] VITALS: BP 117/68
[2018-12-08] MEDS: Lisinopril 20mg tab ORAL SCH (08:48)
[2018-12-08] MEDS: Aspirin Baby 81mg ORAL SCH (08:49)
[2018-12-08] MEDS: Heparin 5000 units/ml inj SUBQ SCH ×2 (08:50→20:49)
[2018-12-08] MEDS: Wixela 250/50 Inhaler - 60 dose INH SCH ×2 (09:44→20:38)
[2018-12-08 12:00] VITALS: BP_SYST 117; BP_SYST 138; BP_DIAS 68; BP_DIAS 73
--- NOTE | 2018-12-08 14:58 | NUR ---
*-* INSURANCE *-* REVIEWS AND UPDATED CLINICALS HAVE BEEN FAXED TO: [facility]:BERTHA P:[phone] F:[phone]
--- NOTE | 2018-12-08 15:17 | Diagnostic Imaging Report ---
Indications: Chest pain Technique: Single day single isotope protocol utilized. Initially, resting images obtained using IV administration 10.1 millicuries 99M technetium Myoview. Subsequently, patient underwent lexiscan stress testing. See cardiology report for details. During adenosine infusion, IV administration 31.1 mCi 99 M technetium Myoview. SPECT and planar images obtained. SPECT images gated to 8 phases of the cardiac cycle were also obtained, and reformatted into cine images for evaluation of ejection fraction. Comparison: none Findings: Per cardiology report, patient experienced no symptoms. Per cardiology report, resting EKG demonstrates normal sinus rhythm with nonspecific T wave abnormality. No EKG changes demonstrated during infusion. Imaging demonstrates a poststress perfusion defect in the inferolateral wall near the apex. This is unchanged on the resting images. No reversible perfusion abnormality demonstrated. Normal left ventricular chamber size. Calculated post stress ejection fraction 66%. No definite focal wall motion abnormality demonstrated Impression: Nonischemic clinical response to pharmacologic stress, per cardiology report Nonischemic electrocardiographic response to pharmacologic stress, per cardiology report Apparent fixed perfusion defect in the inferolateral wall near the apex. This is consistent with an infarct. Note, however, that given absence of wall motion abnormality in this area and normal ejection fraction, the possibility that this represents a soft tissue attenuation artifact should also be considered. No evidence of ischemia at level of stress achieved Calculated post stress ejection fraction 66%
[2018-12-08 16:00] VITALS: BP 139/73
--- NOTE | 2018-12-08 17:40 | General Progress Note ---
Assessment/Plan Assessment/Plan s: I am feeling tired O: no chest pain , MILD SOB PHYSICAL EXAMINATION: HEAD AND NECK: Atraumatic and normocephalic. CHEST: Clear to auscultation. HEART: S1, S2. CHEST: Diffuse bronchial breathing sounds with scattered wheezing. ABDOMEN: Obese and soft. No organomegaly. MUSCULOSKELETAL: No gross lateralized motor deficit. NEUROLOGY: The patient is awake, alert, and oriented x3. Medication : Reviewed and reconciled ASSESSMENT AND PLAN: 1. Asthma/COPD exacerbation. 2. Chest pain, possibility of atypical versus acute coronary syndrome. 3. GI and DVT prophylaxis. Plan: 1- Asthma /copd exacerbation 2- Bronchitis 3- Chest pain : atypical ! Plan: Normal echo negative Troponin Pending completion of MPI Notes from Cardiology notified Subjective Allergies: Coded Allergies: No Known Allergies (Verified Allergy, Mild, 12/11/07) Objective Last 24 Hour Vital Signs Date Time Temp Pulse Resp B/P (MAP) Pulse Ox O2 Delivery O2 Flow Rate FiO2 12/08/18 16:00 98.6 100 18 139/73 (95) 96 12/08/18 16:00 90 12/08/18 14:01 74 20 99 Room Air 21 12/08/18 13:51 98 20 96 Room Air 21 12/08/18 12:00 98.2 82 18 138/73 (94) 95 12/08/18 11:56 79 12/08/18 09:47 80 20 98 Room Air 21 12/08/18 09:46 80 20 98 Room Air 21 12/08/18 09:00 Room Air 12/08/18 08:48 117/68 12/08/18 08:48 77 117/68 12/08/18 08:38 70 20 99 Room Air 21 12/08/18 08:28 77 20 97 Room Air 21 12/08/18 08:00 98.8 75 18 117/68 (84) 95 12/08/18 07:37 79 12/08/18 04:00 98.6 96 20 146/73 (97) 100 12/08/18 04:00 74 12/08/18 01:39 66 20 99 Room Air 21 12/08/18 01:30 75 20 95 Room Air 21 12/08/18 00:00 98.0 88 20 152/75 (100) 99 12/08/18 00:00 77 12/07/18 21:00 Room Air 12/07/18 20:41 90 20 99 Room Air 21 12/07/18 20:40 90 20 99 Room Air 21 12/07/18 20:30 88 20 97 Room Air 21 12/07/18 20:26 88 20 96 Room Air 21 12/07/18 20:00 98.7 88 20 136/87 (103) 95 12/07/18 20:00 91 Intake and Output 12/07/18 12/08/18 19:00 07:00 Intake Total 240 ml Balance 240 ml Intake Oral 240 ml # Voids 3 Height (Feet): 5 Height (Inches): 6.00 Weight (Pounds): 210 Jaycee Vera MD Dec 08, 2018 17:40
--- NOTE | 2018-12-08 17:57 | Infectious Diseases Prog Note ---
Assessment/Plan Problems: (1) Bronchitis with chronic airway obstruction Assessment & Plan: continue doxycycline empirically , continue inhalers and steroids (2) COPD exacerbation Assessment & Plan: due to the above, continue inhalers, taper steroids, o2 therapy as needed (3) ACS (acute coronary syndrome) Assessment & Plan: cardiac work up as per cardiology , had stress test Subjective Constitutional: Reports: no symptoms HEENT: Reports: no symptoms Respiratory: Reports: dry cough, other - wheezing Breasts: Reports: no symptoms Cardiovascular: Reports: no symptoms Gastrointestinal/Abdominal: Reports: no symptoms Genitourinary: Reports: no symptoms Neurologic: Reports: no symptoms Psychiatric: Reports: no symptoms Skin: Reports: no symptoms Endocrine: Reports: no symptoms Hematologic: Reports: no symptoms Musculoskeletal: Reports: no symptoms Allergies: Coded Allergies: No Known Allergies (Verified Allergy, Mild, 12/11/07) Objective Vital Signs Last 24 Hour Vital Signs Date Time Temp Pulse Resp B/P (MAP) Pulse Ox O2 Delivery O2 Flow Rate FiO2 12/08/18 16:00 98.6 100 18 139/73 (95) 96 12/08/18 16:00 90 12/08/18 14:01 74 20 99 Room Air 21 12/08/18 13:51 98 20 96 Room Air 21 12/08/18 12:00 98.2 82 18 138/73 (94) 95 12/08/18 11:56 79 12/08/18 09:47 80 20 98 Room Air 21 12/08/18 09:46 80 20 98 Room Air 21 12/08/18 09:00 Room Air 12/08/18 08:48 117/68 12/08/18 08:48 77 117/68 12/08/18 08:38 70 20 99 Room Air 21 12/08/18 08:28 77 20 97 Room Air 21 12/08/18 08:00 98.8 75 18 117/68 (84) 95 12/08/18 07:37 79 12/08/18 04:00 98.6 96 20 146/73 (97) 100 12/08/18 04:00 74 12/08/18 01:39 66 20 99 Room Air 21 12/08/18 01:30 75 20 95 Room Air 21 12/08/18 00:00 98.0 88 20 152/75 (100) 99 12/08/18 00:00 77 12/07/18 21:00 Room Air 12/07/18 20:41 90 20 99 Room Air 21 12/07/18 20:40 90 20 99 Room Air 21 12/07/18 20:30 88 20 97 Room Air 21 12/07/18 20:26 88 20 96 Room Air 21 12/07/18 20:00 98.7 88 20 136/87 (103) 95 12/07/18 20:00 91 Height (Feet): 5 Height (Inches): 6.00 Weight (Pounds): 210 General Appearance: WD/WN, no acute distress HEENT: normocephalic, atraumatic, anicteric, mucous membranes moist, PERRL, pharynx normal, supple, no JVD Respiratory/Chest: chest wall non-tender, no respiratory distress, no accessory muscle use, decreased breath sounds, expiratory wheezing Cardiovascular: normal peripheral pulses, normal rate, regular rhythm, no gallop/murmur, no JVD Abdomen: normal bowel sounds, soft, non tender, no organomegaly, non distended , no mass, no scars Genitourinary: normal external genitalia Extremities: no cyanosis, no clubbing Skin: no rash, no lesions, no ulcers Neurologic/Psychiatric: alert, oriented x 3, responsive, normal mood/affect Lymphatic: no neck adenopathy, no groin adenopathy Musculoskeletal: normal muscle bulk, no effusion Current Medications Medications (Trade) Dose Ordered Sig/Alysa Route PRN Reason Start Time Stop Time Status Last Admin Dose Admin Acetaminophen (Tylenol) 650 mg Q4H PRN ORAL Mild Pain/Temp > 100.5 12/05/18 03:15 01/04/19 03:14 12/07/18 07:30 Albuterol/ Ipratropium (Albuterol/ Ipratropium) 3 ml Q4H PRN HHN Shortness of Breath 12/05/18 10:30 12/10/18 10:29 Albuterol/ Ipratropium (Albuterol/ Ipratropium) 3 ml Q6HRT HHN 12/05/18 13:00 12/10/18 12:59 12/08/18 13:51 Amlodipine Besylate (Norvasc) 10 mg DAILY ORAL 12/05/18 09:00 01/04/19 08:59 12/08/18 08:48 Aspirin (ASA) 81 mg DAILY ORAL 12/05/18 09:00 01/04/19 08:59 12/08/18 08:49 Atorvastatin Calcium (Lipitor) 80 mg BEDTIME ORAL 12/05/18 21:00 01/04/19 20:59 12/07/18 20:17 Doxycycline Monohydrate (Vibramycin) 100 mg EVERY 12 HOURS ORAL 12/05/18 21:00 12/12/18 20:59 12/08/18 08:48 Heparin Sodium (Porcine) (Heparin 5000 units/ml) 5,000 units EVERY 12 HOURS SUBQ 12/05/18 09:00 01/04/19 08:59 12/08/18 08:50 Lisinopril (Prinivil) 40 mg DAILY ORAL 12/05/18 09:00 01/04/19 08:59 12/08/18 08:48 Morphine Sulfate (Morphine Sulfate) 2 mg Q8HR PRN IVP Severe Pain (Pain Scale 7-10) 12/05/18 03:15 12/12/18 03:14 Pantoprazole (Protonix) 40 mg DAILY ORAL 12/05/18 09:00 01/04/19 08:59 12/08/18 08:48 Prednisone (predniSONE) 60 mg DAILY ORAL 12/08/18 09:00 01/07/19 08:59 12/08/18 08:49 Salmeterol Xinafoate/ Fluticasone (Advair 250/50 Diskus) 1 puffs BID INH 12/05/18 18:00 01/04/19 17:59 12/08/18 09:44 Tiotropium [place] (Spiriva Inhaler) 1 puff DAILY INH 12/06/18 09:00 01/05/19 08:59 12/08/18 09:44 Zolpidem Tartrate (Ambien) 5 mg HSPRN PRN ORAL Insomnia 12/05/18 22:30 12/12/18 22:29 12/08/18 00:00 Kathleen Hayes M.D. Dec 08, 2018 17:57
--- NOTE | 2018-12-08 18:01 | Pulmonology Progress Note ---
Assessment/Plan Problems: (1) COPD exacerbation (2) Bronchitis with chronic airway obstruction Assessment/Plan ASSESSMENT: The patient is a 68-year-old female, former smoker, presenting with shortness of breath and atypical chest pain. She has had two negative troponins and does not have chest pain per se. Her shortness of breath is likely secondary to an exacerbation of her chronic obstructive pulmonary disease. We will check a D-dimer to rule out venous thromboembolism as well. PROBLEM LIST: 1. COPD/asthma with acute exacerbation. 2. Atypical chest pain, status post rule out ACS. 3. Former smoker. 4. Hypertension, hyperlipidemia, CAD, CHF. TREATMENT PLAN: 1. Optimize pulmonary hygiene/mobilize as tolerated. 2. P.r.n. O2 to keep saturations greater than 90%. 3. Mppun-qeu-chwrm and p.r.n. bronchodilators. 4. Off QVAR. 5. Continue Spiriva. 6. Symbicort, not on formulary, continue Advair. 7. Continue Pred 60 & taper as able. 8. Continue doxycycline (D4/7) 9. F/U cards interpretation of NM stress test 10. The patient should have optimization of her inhaler regimen as an outpatient. 11. DVT prophylaxis, heparin subcutaneous. 12. Continue to abstain from smoking. Subjective Allergies: Coded Allergies: No Known Allergies (Verified Allergy, Mild, 12/11/07) Subjective AFVSS on RA Less cough less wheezing less SOB no CP no FC S/P NM stress test Objective Last 24 Hour Vital Signs Date Time Temp Pulse Resp B/P (MAP) Pulse Ox O2 Delivery O2 Flow Rate FiO2 12/08/18 16:00 98.6 100 18 139/73 (95) 96 12/08/18 16:00 90 12/08/18 14:01 74 20 99 Room Air 21 12/08/18 13:51 98 20 96 Room Air 21 12/08/18 12:00 98.2 82 18 138/73 (94) 95 12/08/18 11:56 79 12/08/18 09:47 80 20 98 Room Air 21 12/08/18 09:46 80 20 98 Room Air 21 12/08/18 09:00 Room Air 12/08/18 08:48 117/68 12/08/18 08:48 77 117/68 12/08/18 08:38 70 20 99 Room Air 21 12/08/18 08:28 77 20 97 Room Air 21 12/08/18 08:00 98.8 75 18 117/68 (84) 95 12/08/18 07:37 79 12/08/18 04:00 98.6 96 20 146/73 (97) 100 12/08/18 04:00 74 12/08/18 01:39 66 20 99 Room Air 21 12/08/18 01:30 75 20 95 Room Air 21 12/08/18 00:00 98.0 88 20 152/75 (100) 99 12/08/18 00:00 77 12/07/18 21:00 Room Air 12/07/18 20:41 90 20 99 Room Air 21 12/07/18 20:40 90 20 99 Room Air 21 12/07/18 20:30 88 20 97 Room Air 21 12/07/18 20:26 88 20 96 Room Air 21 12/07/18 20:00 98.7 88 20 136/87 (103) 95 12/07/18 20:00 91 Intake and Output 12/07/18 12/08/18 18:59 06:59 Intake Total 240 ml Balance 240 ml Intake Oral 240 ml # Voids 3 General Appearance: WD/WN, no acute distress HEENT: normocephalic, atraumatic, anicteric, mucous membranes moist Respiratory/Chest: chest wall non-tender, rhonchi Cardiovascular: normal peripheral pulses, normal rate, regular rhythm Abdomen: normal bowel sounds, soft, non tender, no organomegaly, non distended , no mass Extremities: no cyanosis, no clubbing, no edema Current Medications Medications (Trade) Dose Ordered Sig/Alysa Route PRN Reason Start Time Stop Time Status Last Admin Dose Admin Acetaminophen (Tylenol) 650 mg Q4H PRN ORAL Mild Pain/Temp > 100.5 12/05/18 03:15 01/04/19 03:14 12/07/18 07:30 Albuterol/ Ipratropium (Albuterol/ Ipratropium) 3 ml Q4H PRN HHN Shortness of Breath 12/05/18 10:30 12/10/18 10:29 Albuterol/ Ipratropium (Albuterol/ Ipratropium) 3 ml Q6HRT HHN 12/05/18 13:00 12/10/18 12:59 12/08/18 13:51 Amlodipine Besylate (Norvasc) 10 mg DAILY ORAL 12/05/18 09:00 01/04/19 08:59 12/08/18 08:48 Aspirin (ASA) 81 mg DAILY ORAL 12/05/18 09:00 01/04/19 08:59 12/08/18 08:49 Atorvastatin Calcium (Lipitor) 80 mg BEDTIME ORAL 12/05/18 21:00 01/04/19 20:59 12/07/18 20:17 Doxycycline Monohydrate (Vibramycin) 100 mg EVERY 12 HOURS ORAL 12/05/18 21:00 12/12/18 20:59 12/08/18 08:48 Heparin Sodium (Porcine) (Heparin 5000 units/ml) 5,000 units EVERY 12 HOURS SUBQ 12/05/18 09:00 01/04/19 08:59 12/08/18 08:50 Lisinopril (Prinivil) 40 mg DAILY ORAL 12/05/18 09:00 01/04/19 08:59 12/08/18 08:48 Morphine Sulfate (Morphine Sulfate) 2 mg Q8HR PRN IVP Severe Pain (Pain Scale 7-10) 12/05/18 03:15 12/12/18 03:14 Pantoprazole (Protonix) 40 mg DAILY ORAL 12/05/18 09:00 01/04/19 08:59 12/08/18 08:48 Prednisone (predniSONE) 60 mg DAILY ORAL 12/08/18 09:00 01/07/19 08:59 12/08/18 08:49 Salmeterol Xinafoate/ Fluticasone (Advair 250/50 Diskus) 1 puffs BID INH 12/05/18 18:00 01/04/19 17:59 12/08/18 09:44 Tiotropium [place]row (Spiriva Inhaler) 1 puff DAILY INH 12/06/18 09:00 01/05/19 08:59 12/08/18 09:44 Zolpidem Tartrate (Ambien) 5 mg HSPRN PRN ORAL Insomnia 12/05/18 22:30 12/12/18 22:29 12/08/18 00:00 Blake Frederick MD Dec 08, 2018 18:01
--- NOTE | 2018-12-08 19:10 | NUR ---
NURSE NOTES: received pt. pt in bed watching tv. no acute distress noted, no s/s of pain. bed at the lowest positon, call aid within the reach, instructed pt to use the call aid if help is needed, pt verbalized understanding
--- NOTE | 2018-12-08 19:24 | NUR ---
HAND-OFF: Report given to Paula Ortiz. Pt. remain stable.
[2018-12-08 20:00] VITALS: BP 148/77
[2018-12-08] MEDS: Atorvastatin 80mg tab ORAL SCH (20:49)
[2018-12-09] VITALS: BP 122/59
[2018-12-09] MEDS: Albuterol/Ipratropium 3ml neb HHN SCH ×2 (01:43→07:45)
[2018-12-09 04:00] VITALS: BP 106/64
--- NOTE | 2018-12-09 06:38 | NUR ---
NURSE NOTES: pt stable no acute distress during my shift, all needs met during my shift safety precaution in place. will endorse pt to incoming nurse.
--- NOTE | 2018-12-09 07:52 | NUR ---
HAND-OFF: Report given to EDGAR Flores.
[2018-12-09 08:00] VITALS: BP 119/65
--- NOTE | 2018-12-09 08:42 | General Progress Note ---
Assessment/Plan Assessment/Plan s: I am feeling well O: no chest pain , MILD SOB PHYSICAL EXAMINATION: HEAD AND NECK: Atraumatic and normocephalic. CHEST: Clear to auscultation. HEART: S1, S2. CHEST: Diffuse bronchial breathing sounds with scattered wheezing. ABDOMEN: Obese and soft. No organomegaly. MUSCULOSKELETAL: No gross lateralized motor deficit. NEUROLOGY: The patient is awake, alert, and oriented x3. Medication : Reviewed and reconciled ASSESSMENT AND PLAN: 1. Asthma/COPD exacerbation. 2. Chest pain, possibility of atypical versus acute coronary syndrome. 3. GI and DVT prophylaxis. Plan: 1- Asthma /copd exacerbation 2- Bronchitis 3- Chest pain : atypical ! Plan: Normal echo negative Troponin Normal MPI Notes from Cardiology notified Subjective Allergies: Coded Allergies: No Known Allergies (Verified Allergy, Mild, 12/11/07) Objective Last 24 Hour Vital Signs Date Time Temp Pulse Resp B/P (MAP) Pulse Ox O2 Delivery O2 Flow Rate FiO2 12/09/18 08:00 97.6 77 18 119/65 (83) 100 12/09/18 07:52 82 18 99 Room Air 21 12/09/18 07:45 88 20 97 Room Air 21 12/09/18 04:00 82 12/09/18 04:00 98.0 86 18 106/64 (78) 92 12/09/18 01:53 88 18 99 Room Air 21 12/09/18 01:43 89 20 95 Room Air 21 12/09/18 00:00 90 12/09/18 00:00 98.0 83 17 122/59 (80) 100 12/08/18 21:00 Room Air 12/08/18 20:50 69 20 98 Room Air 21 12/08/18 20:40 81 20 97 Room Air 21 12/08/18 20:40 81 20 97 Room Air 21 12/08/18 20:38 79 20 97 Room Air 21 12/08/18 20:00 97.6 82 20 148/77 (100) 98 12/08/18 20:00 79 12/08/18 16:00 98.6 100 18 139/73 (95) 96 12/08/18 16:00 90 12/08/18 14:01 74 20 99 Room Air 21 12/08/18 13:51 98 20 96 Room Air 21 3/15/19 12:00 98.2 82 18 138/73 (94) 95 12/08/18 11:56 79 12/08/18 09:47 80 20 98 Room Air 21 12/08/18 09:46 80 20 98 Room Air 21 12/08/18 09:00 Room Air 12/08/18 08:48 117/68 12/08/18 08:48 77 117/68 Intake and Output 12/08/18 12/09/18 19:00 07:00 Intake Total 490 ml 400 ml Balance 490 ml 400 ml Intake Oral 490 ml 400 ml # Voids 3 2 Height (Feet): 5 Height (Inches): 6.00 Weight (Pounds): 210 Jaycee Vera MD Dec 09, 2018 08:42
[2018-12-09] MEDS: Heparin 5000 units/ml inj SUBQ SCH (09:00)
[2018-12-09] MEDS: Wixela 250/50 Inhaler - 60 dose INH SCH (09:52)
[2018-12-09] MEDS: Aspirin Baby 81mg ORAL SCH (09:53)
[2018-12-09 09:54] VITALS: BP 119/65
[2018-12-09] MEDS: Lisinopril 20mg tab ORAL SCH (09:54)
--- NOTE | 2018-12-09 11:29 | NUR ---
NURSE NOTES: Patient discharged home in stable condition with belongings. Family taking patient home.
--- NOTE | 2018-12-09 20:53 | Infectious Diseases Prog Note ---
Assessment/Plan Problems: (1) Bronchitis with chronic airway obstruction Assessment & Plan: continue doxycycline empirically for five days total , continue inhalers and taper steroids (2) COPD exacerbation Assessment & Plan: due to the above, continue inhalers, taper steroids, o2 therapy as needed (3) ACS (acute coronary syndrome) Assessment & Plan: cardiac work up as per cardiology , had stress test Assessment/Plan time of note doesn't reflect time patient was seen Subjective Constitutional: Reports: no symptoms HEENT: Reports: no symptoms Respiratory: Reports: no symptoms Breasts: Reports: no symptoms Cardiovascular: Reports: no symptoms Gastrointestinal/Abdominal: Reports: no symptoms Genitourinary: Reports: no symptoms Neurologic: Reports: no symptoms Psychiatric: Reports: no symptoms Skin: Reports: no symptoms Endocrine: Reports: no symptoms Hematologic: Reports: no symptoms Musculoskeletal: Reports: no symptoms Allergies: Coded Allergies: No Known Allergies (Verified Allergy, Mild, 12/11/07) Objective Vital Signs Last 24 Hour Vital Signs Date Time Temp Pulse Resp B/P (MAP) Pulse Ox O2 Delivery O2 Flow Rate FiO2 12/09/18 10:07 75 20 97 Room Air 21 12/09/18 10:07 75 20 97 Room Air 21 12/09/18 10:02 75 20 97 Room Air 21 12/09/18 10:02 75 20 97 Room Air 21 12/09/18 09:54 119/65 12/09/18 09:53 77 119/65 12/09/18 09:00 Room Air 12/09/18 08:00 82 12/09/18 08:00 97.6 77 18 119/65 (83) 100 12/09/18 07:52 82 18 99 Room Air 21 12/09/18 07:45 88 20 97 Room Air 21 12/09/18 04:00 82 12/09/18 04:00 98.0 86 18 106/64 (78) 92 12/09/18 01:53 88 18 99 Room Air 21 12/09/18 01:43 89 20 95 Room Air 21 12/09/18 00:00 90 12/09/18 00:00 98.0 83 17 122/59 (80) 100 12/08/18 21:00 Room Air Height (Feet): 5 Height (Inches): 6.00 Weight (Pounds): 210 General Appearance: WD/WN, no acute distress HEENT: normocephalic, atraumatic, anicteric, mucous membranes moist, PERRL Respiratory/Chest: chest wall non-tender, lungs clear, normal breath sounds, no respiratory distress, no accessory muscle use Cardiovascular: normal peripheral pulses, normal rate, regular rhythm, no gallop/murmur, no JVD Abdomen: normal bowel sounds, soft, non tender, no organomegaly, non distended , no mass, no scars Genitourinary: normal external genitalia Extremities: no cyanosis, no clubbing Skin: no rash, no lesions, no ulcers Neurologic/Psychiatric: pants busheler II-XII grossly normal, no motor/sensory deficits, alert, oriented x 3, responsive Lymphatic: no neck adenopathy, no groin adenopathy Musculoskeletal: normal muscle bulk, no effusion Kathleen Hayes M.D. Dec 09, 2018 20:53
--- NOTE | 2018-12-13 09:17 | Discharge Summary ---
Discharge Summary Discharge Summary _ DATE OF ADMISSION: 12/04/2018 DATE OF DISCHARGE: 12/09/2018 DISCHARGED BY: Dr. Vera REASON FOR ADMISSION: 68 years old female with past medical history of hypertension, hypercholesterolemia, heart attack x2, coronary artery disease, CHF, diabetes mellitus, COPD/asthma, presented to emergency department complaining of shortness of breath and chest tightness. Patient was wheezing. Laboratory workup revealed no leukocytosis, stable hemoglobin and hematocrit. Stable electrolytes and renal parameters. Troponin negative. Pro BNP 80. EKG revealed normal sinus rhythm, no acute ischemic changes. Chest x-ray demonstrated borderline enlarged heart. No definite infiltrate, effusion or congestion. Patient admitted to telemetry floor to rule out acute coronary syndrome. CONSULTANTS: dandy tender Dr. Allen pulmonary ID specialist Dr. Hayes [facility] COURSE: Patient admitted to telemetry floor. Manager Baby business development recruiter and ID specialist closely followed. Serial troponin were negative. EKG revealed normal sinus rhythm, no acute ischemic changes. Patient was ruled out for acute myocardial infarction. Echocardiogram demonstrated preserved ejection fraction of 55-60%. No evidence of wall motion abnormality. No evidence of left ventricular hypertrophy. Right ventricular systolic pressure of 35. Patient subsequently undergone myocardial perfusion scan test, which revealed apparent fixed perfusion defect in the inferior lateral wall near the apex, consistent with infarct. No evidence of ischemia at level of stress achieved. Calculated post stress ejection fraction 66%. Fixed perfusion defect noted on stress test, was probably corresponding to old myocardial infarction (patient had a history of MA x2). No reversible perfusion defect was noted. Per dandy tender, shortness of breath was likely due to acute COPD/asthma exacerbation. Dairy Nutritionist closely followed. Supplemental oxygen provided as needed to keep pulse oximetry above 90%. Pulmonary toilet provided [id number] and as needed with bronchodilator. Patient was placed on inhalers: Spiriva and Symbicort (Qvar was discontinued , since patient up- titrated to Symbicort). Patient started on the IV steroids, which were gradually tapered and changed to oral steroids upon discharge. Patient was on empiric doxycycline. DVT and GI prophylaxis provided. Patient was counseled to continue abstinence from smoking. Blood pressure was managed with calcium channel jimenez and MELANIE inhibitor. No beta-jimenez was recommended, given COPD/ asthma exacerbation. Antiplatelet therapy with aspirin and maintenance dose of Lasix were continued with close monitoring of volumes and cardiorenal parameters. Statin was continued. Lipid panel was stable. GI prophylaxis provided. Patient clinically stabilized and was ready for discharge home. FINAL DIAGNOSES: COPD exacerbation Bronchitis with chronic airway obstruction Hypertensive heart disease Atypical chest pain, possibly due to COPD exacerbation Former smoker Hyperlipidemia Coronary artery disease CHF DISCHARGE MEDICATIONS: See Medication Reconciliation list. DISCHARGE INSTRUCTIONS: Patient was discharged home. Follow up with primary care provider in one week. I have been assigned to dictate discharge summary for this account. I was not involved in the patient's management. Jania Henson NP Dec 13, 2018 09:17
== END 2018-12-09 11:14 | disposition home or self-care (01) | DRG 192 ==
LOC: EMR 23:00 → 2E 23:45 → EDBEDREQ 12-05 00:04
DX: J44.1 Chronic obstructive pulmonary disease with (acute) exacerbation (principal); R07.89 Other chest pain; I25.2 Old myocardial infarction; I25.10 Atherosclerotic heart disease of native coronary artery without angina pectoris; Z87.891 Personal history of nicotine dependence; E78.5 Hyperlipidemia, unspecified; I11.0 Hypertensive heart disease with heart failure; Z86.73 Personal history of transient ischemic attack (TIA), and cerebral infarction without residual deficits
CPT/HCPCS: 36415; 71045; 78452; 80053; 80061; 82550; 82553; 82962; 83036; 83690; 83880; 84443; 84484; 85025; 85379; 87040; 93005; 93017; 93306; 94640; 94664; 96365; 96375; 99285; J7620